=== PATIENT | female | born 1995 | race Caucasian/White ===

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

== ENCOUNTER 2017-07-01 13:27 | Emergency (ER) | payer OTHER ==
[2017-07-01 13:43] VITALS: BP 136/75; PULSE 83; RESP 18; TEMP 97.8
--- NOTE | 2017-07-01 13:54 | ED ---
General Adult HPI - General Chief complaint: Upper Respiratory Infection Stated complaint: Cough Time Seen by Provider: 07/01/17 13:30 Source: patient, RN notes reviewed Mode of arrival: ambulatory Limitations: no limitations - History of Present Illness Initial comments: 22-year-old female presents to the emergency Department chief complaint of cough. She's been sick for about a week and half. It started as sinus pressure. Now she's developed this cough. She states someone else in the home has pneumonia. She does admit to smoking. She states she has felt like fevers on and off for that. She denies any nausea vomiting. She was concerned due to the continued cough so she thought that she should be seen. Patient denies any recent chest pain, back pain, abdominal pain, nausea vomiting, numbness or tingling, dysuria or hematuria, constipation or diarrhea, headaches or visual changes, or any other current symptoms. - Related Data Home Medications Medication Instructions Recorded Confirmed Pnv,Calcium 72/Iron/Folic Acid 1 tab PO DAILY 07/26/16 11/11/16 [ Plus Tablet] Previous Rx's Medication Instructions Recorded Acetaminophen-Codeine 300-30mg 1 tab PO Q4H PRN #30 tablet 11/13/16 [Tylenol #3] Ibuprofen [Motrin] 600 mg PO Q6HR PRN #30 tab 11/13/16 Amoxicillin/Potassium Clav 1 tab PO Q12HR #20 tab 07/01/17 [Augmentin 875-125 Tablet] predniSONE 50 mg PO DAILY #5 tab 07/01/17 Allergies Allergy/AdvReac Type Severity Reaction Status Date / Time No Known Allergies Allergy Verified 07/01/17 13:40 Review of Systems ROS Statement: Those systems with pertinent positive or pertinent negative responses have been documented in the HPI. ROS Other: All systems not noted in ROS Statement are negative. Past Medical History Past Medical History: No Reported History History of Any Multi-Drug Resistant Organisms: None Reported Past Surgical History: Section, Orthopedic Surgery Past Anesthesia/Blood Transfusion Reactions: No Reported Reaction Additional Past Anesthesia/Blood Transfusion Reaction / Comment(s): no hx blood transfusion Past Psychological History: Anxiety Smoking Status: Current every day smoker Past Alcohol Use History: None Reported Past Drug Use History: None Reported - Past Family History Mother Family Medical History: No Reported History Father Family Medical History: No Reported History General Exam - General Exam Comments Initial Comments: General exam: Alert, active, comfortable in no apparent distress Head: Normocephalic Eyes: Normal reaction of pupils, equal size, normal range of extraocular motion Ears: normal external ear canals, pink tympanic membranes with normal cone of light Nose: clear with pink turbinates Throat: no erythema or exudates with normal sized tonsils Neck: no masses, no nuchal rigidity Chest: no chest wall deformity Lungs: equal air entry with no crackles or wheeze CVS: S1 and S2 normal with no audible mumurs, regular rhythm Abdomen: no hepatosplenomegaly, normal bowel sounds, no guarding or rigidity Spine: no scoliosis or deformity Skin: no rashes Neurological: No focal deficits, tone is normal in all 4 extremities Limitations: no limitations Course Vital Signs 07/01/17 13:40 Temperature 97.8 F Pulse Rate 83 Respiratory 18 Rate Blood Pressure 136/75 O2 Sat by Pulse 99 Oximetry - Reevaluation(s) Reevaluation #1: 07/01/17 14:33 We did discuss risk-benefit of medications with breast-feeding. Medical Decision Making - Medical Decision Making 22 yo female presents to the ER with cc of cough. At this time patient x-rays reviewed and negative. This and we discussed most likely a bronchitis. Due to the length of time that she has been ill we will place on antibiotic as well. We did discuss follow-up return parameters all questions. Patient is in agreement this plan all questions have been answered. This time patient will be discharged. - Radiology Data Radiology results: report reviewed, image reviewed Disposition Clinical Impression: Acute bronchitis Disposition: HOME SELF-CARE Condition: Stable Instructions: Acute Bronchitis (ED) Additional Instructions: Please use medication as discussed. Please follow up with family doctor if symptoms have not improved over the next two days. Please return to the emergency room if your symptoms increase or worsen or for any other concerns. Prescriptions: Amoxicillin/Potassium Clav [Augmentin 875-125 Tablet] 1 tab PO Q12HR #20 tab predniSONE 50 mg PO DAILY #5 tab Referrals: Wolf Torres MD [REFERRING] - 1-2 days Time of Disposition: 14:33
--- NOTE | 2017-07-01 14:24 | XR ---
EXAMINATION TYPE: XR chest 2V DATE OF EXAM: 07/01/2017 COMPARISON: NONE HISTORY: Cough and congestion TECHNIQUE: Frontal and lateral views of the chest are obtained. FINDINGS: There is no focal air space opacity, pleural effusion, or pneumothorax seen. The cardiac silhouette size is within normal limits. There is bronchial wall thickening. There may be a spinal cu rvature. The osseous structures are intact. IMPRESSION: Correlate for bronchitis, reactive airways disease, follow-up as indicated.
== END 2017-07-01 14:49 | disposition home or self-care (01) ==
LOC: EC 13:27
DX: J20.9 Acute bronchitis, unspecified (principal); F17.200 Nicotine dependence, unspecified, uncomplicated; Z79.899 Other long term (current) drug therapy
CPT/HCPCS: 71046; 99283

== ENCOUNTER 2018-01-01 09:37 | Emergency (ER) | payer OTHER ==
[2018-01-01 09:48] VITALS: BP 107/63; PULSE 90; RESP 20; TEMP 98.5
[2018-01-01] MEDS ORDERED: IBUPROFEN 600 MG TAB PO STA (10:04)
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
--- NOTE | 2018-01-01 10:16 | XR ---
EXAMINATION TYPE: XR knee complete LT , 3 VIEWS DATE OF EXAM ORDERED: 01/01/2018 HISTORY: Pain. COMPARISON: None. FINDINGS: No fracture or dislocation is seen. The study is such that I cannot exclude a joint effusi on. IMPRESSION: NO ACUTE OSSEOUS LESION.
== END 2018-01-01 10:43 | disposition home or self-care (01) ==
LOC: EC 09:37
DX: S83.92XA Sprain of unspecified site of left knee, initial encounter (principal); F17.200 Nicotine dependence, unspecified, uncomplicated; X50.1XXA Overexertion from prolonged static or awkward postures, initial encounter; Y93.44 Activity, trampolining; Y92.009 Unspecified place in unspecified non-institutional (private) residence as the place of occurrence of the external cause
CPT/HCPCS: 73562; 99283; L1830

== ENCOUNTER 2018-05-04 21:29 | Emergency (ER) | payer OTHER ==
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
[2018-05-05 00:35] VITALS: BP 118/83; PULSE 84; RESP 19; TEMP 98.6
== END 2018-05-05 00:33 | disposition home or self-care (01) ==
LOC: EC 21:29
DX: T76.21XA Adult sexual abuse, suspected, initial encounter (principal); R10.2 Pelvic and perineal pain; F17.200 Nicotine dependence, unspecified, uncomplicated
CPT/HCPCS: 99284

== ENCOUNTER 2019-05-08 03:11 | Emergency (ER) | payer OTHER ==
--- NOTE | 2019-05-08 03:22 | ED ---
Chest Pain HPI - General Chief Complaint: Chest Pain Stated Complaint: chest pain Time Seen by Provider: 05/08/19 03:12 Source: patient, EMS Mode of arrival: EMS Limitations: no limitations - History of Present Illness MD Complaint: chest pain Onset/Timin -: hour(s) Onset: other (While smoking) Pain Location: substernal Pain Radiation: none Severity: moderate Quality: other (Burning) Consistency: now resolved Improves With: nothing Worsens With: palpation Treatments Prior to Arrival: none - Related Data Home Medications Medication Instructions Recorded Confirmed No Known Home Medications 05/04/18 05/04/18 Allergies Allergy/AdvReac Type Severity Reaction Status Date / Time No Known Allergies Allergy Verified 05/08/19 03:15 Review of Systems ROS Statement: Those systems with pertinent positive or pertinent negative responses have been documented in the HPI. ROS Other: All systems not noted in ROS Statement are negative. Constitutional: Denies: fever, chills Respiratory: Denies: cough, dyspnea Cardiovascular: Reports: chest pain. Denies: palpitations, syncope Gastrointestinal: Denies: abdominal pain, nausea, vomiting Genitourinary: Denies: dysuria Musculoskeletal: Denies: back pain Skin: Denies: rash Neurological: Denies: headache EKG Findings - EKG Results: EKG: interpreted by LUCAS WEBSTER, sinus rhythm (Rate 78 bpm), normal axis, normal QRS, normal ST/T - TX, Pacemaker, Normal: Normal tracing: normal tracing Past Medical History Past Medical History: No Reported History History of Any Multi-Drug Resistant Organisms: None Reported Past Surgical History: Section, Orthopedic Surgery Past Anesthesia/Blood Transfusion Reactions: No Reported Reaction Additional Past Anesthesia/Blood Transfusion Reaction / Comment(s): no hx blood transfusion Past Psychological History: Anxiety Smoking Status: Current every day smoker Past Alcohol Use History: None Reported Past Drug Use History: Marijuana - Past Family History Mother Family Medical History: No Reported History Father Family Medical History: No Reported History General Exam Limitations: no limitations General appearance: alert, in no apparent distress Head exam: Present: atraumatic, normocephalic Respiratory exam: Present: normal lung sounds bilaterally, chest wall tenderness. Absent: respiratory distress, wheezes, rales, rhonchi, stridor, accessory muscle use, decreased breath sounds, prolonged expiratory Cardiovascular Exam: Present: regular rate, normal rhythm, normal heart sounds. Absent: systolic murmur, diastolic murmur, rubs, gallop GI/Abdominal exam: Present: soft. Absent: distended, tenderness, guarding, rebound, rigid, mass Extremities exam: Present: normal inspection, normal capillary refill. Absent: pedal edema, calf tenderness Back exam: Present: normal inspection. Absent: CVA tenderness (R), CVA tenderness (L) Neurological exam: Present: alert Skin exam: Present: warm, dry, intact, normal color. Absent: rash Course Vital Signs 05/08/19 03:12 Temperature 99.4 F Pulse Rate 75 Respiratory 16 Rate Blood Pressure 110/60 O2 Sat by Pulse 99 Oximetry Disposition Clinical Impression: Chest pain Disposition: HOME SELF-CARE Condition: Good Instructions (If sedation given, give patient instructions): Chest Pain (ED) Is patient prescribed a controlled substance at d/c from ED?: No Referrals: None,Stated [Primary Care Provider] - 1-2 days
--- NOTE | 2019-05-08 03:49 | XR ---
EXAMINATION TYPE: XR chest 2V DATE OF EXAM: 05/08/2019 COMPARISON: 07/01/2017 HISTORY: Cough. Chest pain TECHNIQUE: FINDINGS: Heart and mediastinum are normal. Lungs are clear. Diaphragm is normal. Bony thorax appears normal. IMPRESSION: Normal chest. No change.
[2019-05-08 05:07] LABS: Basophils % (A) 0 %; Eosinophils % (A) 0 %; HCT 36.9 % (34.0-46.0); HGB 12.1 gm/dL (11.4-16.0); Lymphocytes # (A) 1.2 k/uL (1.0-4.8); Lymphocytes % (A) 10 %; MCH 29.4 pg (25.0-35.0); MCHC 32.7 g/dL (31.0-37.0); MCV 90.1 fL (80.0-100.0); Monocytes # (A) 0.4 k/uL (0-1.0); Monocytes % (A) 3 %; Neutrophils # (A) 10.9 k/uL (1.3-7.7); Neutrophils % (A) 86 %; Platelet Count 337 k/uL (150-450); RDW 12.7 % (11.5-15.5); WBC 12.6 k/uL (3.8-10.6)
[2019-05-08 05:16] LABS: ALT 12 U/L (4-34); AST 18 U/L (14-36); African American GFR (CKD) >90 (>60 ml/min/1.73 sqM); Albumin 3.9 g/dL (3.5-5.0); Alkaline Phosphatase 68 U/L (38-126); Amylase 49 U/L (30-110); Anion Gap 7 mmol/L; Blood Urea Nitrogen 9 mg/dL (7-17); Calcium 9.1 mg/dL (8.4-10.2); Carbon Dioxide 22 mmol/L (22-30); Chloride 109 mmol/L (98-107); Glucose 105 mg/dL (74-99); Non-African American GFR(CKD) >90 (>60 ml/min/1.73 sqM); Potassium 4.4 mmol/L (3.5-5.1); Sodium 138 mmol/L (137-145); Total Bilirubin 0.4 mg/dL (0.2-1.3); Total Protein 6.7 g/dL (6.3-8.2)
[2019-05-08 05:51] VITALS: BP 113/49; PULSE 77; RESP 18; TEMP 97.9
== END 2019-05-08 05:50 | disposition home or self-care (01) ==
LOC: EC 03:11
DX: R07.89 Other chest pain (principal); F17.200 Nicotine dependence, unspecified, uncomplicated
CPT/HCPCS: 36415; 71046; 80053; 82150; 83690; 85025; 93005; 99285

== ENCOUNTER 2019-09-07 04:24 | Emergency (ER) | payer OTHER ==
[2019-09-07 04:33] VITALS: TEMP 99.7
[2019-09-07] MEDS ORDERED: LORazepam 2 MG/ML INJ IM STA (04:36)
[2019-09-07] MEDS ORDERED: ONDANSETRON ODT 4 MG TAB PO STA (04:36)
--- NOTE | 2019-09-07 04:37 | ED ---
Anxiety HPI - General Chief Complaint: Anxiety Stated Complaint: Anxiety Time Seen by Provider: 09/07/19 04:26 Source: patient, EMS, RN notes reviewed, old records reviewed Mode of arrival: EMS - History of Present Illness MD Complaint: anxiety, heart racing, shortness of breath -: hour(s) Symptoms: dyspnea, palpitations, extremity numbness/tingling, perioral numbness/tingling Place: home Previous History of Same: Yes Severity: moderate Quality: improving Provoking factors: emotional stress Improves With: medication (xanax) Associated symptoms: palpitations, weakness - Related Data Home Medications: Home Medications Medication Instructions Recorded Confirmed No Known Home Medications 05/04/18 05/04/18 Allergies/Adverse Reactions: Allergies Allergy/AdvReac Type Severity Reaction Status Date / Time No Known Allergies Allergy Verified 05/08/19 03:15 Review of Systems ROS Statement: Those systems with pertinent positive or pertinent negative responses have been documented in the HPI. ROS Other: All systems not noted in ROS Statement are negative. Past Medical History Past Medical History: No Reported History Additional Past Medical History / Comment(s): anxiety History of Any Multi-Drug Resistant Organisms: None Reported Past Surgical History: Section, Orthopedic Surgery Past Anesthesia/Blood Transfusion Reactions: No Reported Reaction Additional Past Anesthesia/Blood Transfusion Reaction / Comment(s): no hx blood transfusion Past Psychological History: Anxiety Smoking Status: Current every day smoker Past Alcohol Use History: None Reported Past Drug Use History: Marijuana - Past Family History Mother Family Medical History: No Reported History Father Family Medical History: No Reported History General Exam General appearance: alert, in no apparent distress, anxious Head exam: Present: atraumatic, normocephalic, normal inspection Eye exam: Present: normal appearance, PERRL, EOMI. Absent: scleral icterus, conjunctival injection, periorbital swelling ENT exam: Present: normal exam, mucous membranes moist Neck exam: Present: normal inspection. Absent: tenderness, meningismus, lymphadenopathy Respiratory exam: Present: normal lung sounds bilaterally. Absent: respiratory distress, wheezes, rales, rhonchi, stridor Cardiovascular Exam: Present: normal rhythm, tachycardia, normal heart sounds. Absent: systolic murmur, diastolic murmur, rubs, gallop, clicks GI/Abdominal exam: Present: soft, normal bowel sounds. Absent: distended, tenderness, guarding, rebound, rigid Extremities exam: Present: normal inspection, full ROM, normal capillary refill. Absent: tenderness, pedal edema, joint swelling, calf tenderness Back exam: Present: normal inspection Neurological exam: Present: alert, oriented X3, CN II-XII intact Psychiatric exam: Present: normal affect, normal mood Skin exam: Present: warm, dry, intact, normal color. Absent: rash Course Vital Signs 09/07/19 09/07/19 09/07/19 04:26 04:27 04:40 Temperature 99.7 F H Pulse Rate 109 H Respiratory 18 Rate Blood Pressure 115/66 115/66 103/71 O2 Sat by Pulse 96 96 Oximetry 09/07/19 05:00 Temperature Pulse Rate Respiratory Rate Blood Pressure 112/49 O2 Sat by Pulse 96 Oximetry Medical Decision Making - Lab Data Lab Results 09/07/19 09/07/19 Range/Units 04:35 04:35 Urine Color Colorless Urine Appearance Clear (Clear) Urine pH 6.5 (5.0-8.0) Ur Specific [place] 1.001 (1.001-1.035) Urine Protein Negative (Negative) Urine Glucose (UA) Negative (Negative) Urine Ketones Negative (Negative) Urine Blood Negative (Negative) Urine Nitrite Negative (Negative) Urine Bilirubin Negative (Negative) Urine Urobilinogen <2.0 (<2.0) mg/dL Ur Leukocyte Esterase Negative (Negative) Urine HCG, Qual Not Detected (Not Detectd) Disposition Clinical Impression: Acute anxiety, Panic attack Disposition: HOME SELF-CARE Condition: Good Instructions (If sedation given, give patient instructions): Generalized Anxiety Disorder (ED) Is patient prescribed a controlled substance at d/c from ED?: No Referrals: Nonstaff,Physician [Primary Care Provider] - 1-2 days
[2019-09-07 05:08] LABS: Appearance,Urine Clear (Clear); Bilirubin,Urine Negative (Negative); Blood,Urine Negative (Negative); Color,Urine Colorless; Glucose,Urine (UA) Negative (Negative); Ketones,Urine Negative (Negative); Leukocyte Esterase,Urine Negative (Negative); Nitrite,Urine Negative (Negative); PH, Urine 6.5 (5.0-8.0); Protein,Urine Negative (Negative); Specific Gravity,Urine 1.001 (1.001-1.035); Urobilinogen,Urine <2.0 mg/dL (<2.0)
--- NOTE | 2019-09-07 05:49 | XR ---
EXAMINATION TYPE: XR chest 2V DATE OF EXAM: 09/07/2019 COMPARISON: 07/01/2017 HISTORY: Cough TECHNIQUE: FINDINGS: Heart and mediastinum are normal. Lungs are clear. Diaphragm is normal. Bony thorax appears normal. IMPRESSION: Normal chest. No change.
[2019-09-07 06:00] VITALS: BP 96/50; PULSE 92; RESP 16
== END 2019-09-07 06:29 | disposition home or self-care (01) ==
LOC: EC 04:24
DX: F41.0 Panic disorder [episodic paroxysmal anxiety] (principal); F17.200 Nicotine dependence, unspecified, uncomplicated
CPT/HCPCS: 81003; 81025; 71046; 99284; 96372; J2060

== ENCOUNTER 2019-11-19 05:17 | Emergency (ER) | payer OTHER ==
[2019-11-19] MEDS ORDERED: SODIUM CHLORIDE 0.9% 500 ML 500 ML IV ONE (06:15)
[2019-11-19] MEDS ORDERED: SODIUM CHLORIDE 0.9% 1,000 ML IV SCH (06:15)
[2019-11-19] MEDS ORDERED: IBUPROFEN 800 MG TAB PO STA (06:15)
[2019-11-19 06:43] LABS: Appearance,Urine Cloudy (Clear); Bilirubin,Urine Negative (Negative); Blood,Urine Negative (Negative); Calcium Oxalate Crystals,Urine Occasional /hpf; Color,Urine Yellow; Glucose,Urine (UA) Negative (Negative); Ketones,Urine Negative (Negative); Leukocyte Esterase,Urine Negative (Negative); Mucus,Urine Occasional /hpf; Nitrite,Urine Negative (Negative); PH, Urine 6.5 (5.0-8.0); Protein,Urine Trace (Negative); RBC,Urine 1 /hpf (0-5); Urobilinogen,Urine <2.0 mg/dL (<2.0); WBC,Urine <1 /hpf (0-5)
[2019-11-19 06:58] LABS: Basophils % (A) 0 %; Eosinophils # (A) 0.1 k/uL (0-0.7); Eosinophils % (A) 2 %; HCT 37.2 % (34.0-46.0); HGB 12.6 gm/dL (11.4-16.0); Lymphocytes # (A) 0.6 k/uL (1.0-4.8); Lymphocytes % (A) 12 %; MCH 31.8 pg (25.0-35.0); MCHC 33.8 g/dL (31.0-37.0); MCV 93.9 fL (80.0-100.0); Monocytes # (A) 0.4 k/uL (0-1.0); Monocytes % (A) 8 %; Neutrophils # (A) 3.6 k/uL (1.3-7.7); Neutrophils % (A) 77 %; Platelet Count 246 k/uL (150-450); RBC 3.96 m/uL (3.80-5.40); RDW 13.1 % (11.5-15.5); WBC 4.6 k/uL (3.8-10.6)
[2019-11-19 07:06] LABS: ALT 19 U/L (4-34); AST 22 U/L (14-36); African American GFR (CKD) >90 (>60 ml/min/1.73 sqM); Albumin 4.1 g/dL (3.5-5.0); Alkaline Phosphatase 56 U/L (38-126); Anion Gap 6 mmol/L; Blood Urea Nitrogen 12 mg/dL (7-17); Calcium 8.8 mg/dL (8.4-10.2); Carbon Dioxide 24 mmol/L (22-30); Chloride 109 mmol/L (98-107); Glucose 90 mg/dL (74-99); Non-African American GFR(CKD) >90 (>60 ml/min/1.73 sqM); Potassium 4.2 mmol/L (3.5-5.1); Sodium 139 mmol/L (137-145); Total Bilirubin 0.3 mg/dL (0.2-1.3); Total Protein 6.8 g/dL (6.3-8.2)
--- NOTE | 2019-11-19 07:06 | XR ---
EXAMINATION TYPE: XR chest 2V DATE OF EXAM: 11/19/2019 COMPARISON: 09/07/2019 HISTORY: Cough TECHNIQUE: FINDINGS: Heart and mediastinum are normal. Lungs are clear. Diaphragm is normal. Bony thorax appears normal. IMPRESSION: Normal chest. No change.
--- NOTE | 2019-11-19 07:10 | ED ---
Fever HPI - General Source: patient, EMS Mode of arrival: EMS Limitations: no limitations <Dayna Jim - Last Filed: 11/19/19 07:36> <Tavia Mendes - Last Filed: 11/20/19 14:33> - General Chief Complaint: Fever Stated Complaint: Fever, Body aches Time Seen by Provider: 11/19/19 06:00 - History of Present Illness Initial Comments: 24-year-old male presenting today for chief complaint of fever body aches. Pat ient states that she has had fever bodyaches a sore throat and slight cough for the past day. Patient states that it began around 8 PM last night. She states that she took Tylenol bed as well as 1 hour prior to arrival. Patient denies any vomiting flank pain back pain dysuria or urgency frequency she denies any chest pain or shortness of breath. Patient denies any difficulty swallowing. Patient denies any abdominal pain. Denies . She denies additional complaints. Upon arrival patient febrile but appears well nontoxic, no distress. (Dayna Jim) - Related Data Previous Rx's Medication Instructions Recorded Acetaminophen Tab [Tylenol] 650 mg PO Q4H PRN 7 Days #42 tab 11/19/19 Ibuprofen 600 mg PO Q8H PRN 7 Days #21 tab 11/19/19 predniSONE 20 mg PO DAILY 4 Days #8 tab 11/19/19 Allergies Allergy/AdvReac Type Severity Reaction Status Date / Time No Known Allergies Allergy Verified 05/08/19 03:15 Review of Systems ROS Other: All systems not noted in ROS Statement are negative. <Dayna Jim - Last Filed: 11/19/19 07:36> ROS Other: All systems not noted in ROS Statement are negative. <Tavia Mendes - Last Filed: 11/20/19 14:33> ROS Statement: Those systems with pertinent positive or pertinent negative responses have been documented in the HPI. Past Medical History Past Medical History: No Reported History Additional Past Medical History / Comment(s): anxiety History of Any Multi-Drug Resistant Organisms: None Reported Past Surgical History: Section, Orthopedic Surgery Past Anesthesia/Blood Transfusion Reactions: No Reported Reaction Additional Past Anesthesia/Blood Transfusion Reaction / Comment(s): no hx blood transfusion Past Psychological History: Anxiety Smoking Status: Current every day smoker Past Alcohol Use History: Occasional Past Drug Use History: Marijuana - Past Family History Mother Family Medical History: No Reported History Father Family Medical History: No Reported History <Dayna Jim - Last Filed: 11/19/19 07:36> General Exam Limitations: no limitations <Dayna Jim - Last Filed: 11/19/19 07:36> - General Exam Comments Initial Comments: General: The patient is awake and alert, in no distress Eye: +3 mm pupils are equal, round and reactive to light, extra-ocular movem ents are intact. No nystagmus. There is normal conjunctiva bilaterally. No signs of icterus. No photophobia Ears, nose, mouth and throat: There are moist mucous membranes and no oral lesions. Oropharynx was mildly erythematous, there is no tonsillar enlargement exudates or lesions. Uvula midline. Tympanic membranes are not erythematous or is no effusions bulging or retraction. No tenderness to palpation of the mastoid. No anterior cervical lymphadenopathy. Rhinorrhea, clear and bilateral nares. No tripoding, no drooling. Neck: The neck is supple, there is no tenderness or JVD. No nuchal rigidity Cardiovascular: There is a regular rate and rhythm. No murmur, rub or gallop is appreciated. Respiratory: Lungs are clear to auscultation, respirations are non-labored, breath sounds are equal. No wheezes, stridor, rales, or rhonchi. No retractions or abdominal breathing. Musculoskeletal: Normal ROM, no tenderness. Strength 5/5. Sensation intact. Ra dial pulses equal bilaterally 2+. Neurological: A&O x 3. CN II-XII intact grossly, There are no obvious motor or sensory deficits. Coordination appears grossly intact. Speech appears normal, no muffling. Skin: Skin is warm and dry and no rashes or lesions are noted. No extremity edema Psychiatric: Cooperative (Dayna Jim) Course Vital Signs 11/19/19 11/19/19 11/19/19 05:22 07:25 07:30 Temperature 101.8 F H 99.5 F Pulse Rate 100 88 Respiratory 17 14 Rate Blood Pressure 95/51 99/52 O2 Sat by Pulse 96 97 Oximetry Medical Decision Making - Lab Data Result diagrams: 11/19/19 06:43 07/27/20 06:43 <Dayna Jim - Last Filed: 11/19/19 07:36> - Lab Data Result diagrams: 11/19/19 06:43 11/19/19 06:43 <Tavia Mendes - Last Filed: 11/20/19 14:33> - Medical Decision Making 24yo female presnting for fever. Febrile on arrival. Endorses URI symptoms. Present on exam. Labs stable. HR improved with fever control, fluids. Patient has no leukocytosis, she does not appear toxic. Patient CXR clear. Lungs clear to auscultation. Patient will be discharged with symptomatic treatment/steroids. Patient is agreeable to care plan and discharge. discussed case wtih Dr. Mendes who is agreeable to patient discharge/care plan. I discussed importance of f/u, return for worsening symptoms and symptomatic treatment with patient she verbalized understanding and was discharged appearing well. (Dayna Jim) I was available for consultation in the emergency department. The history and physical exam were done by the midlevel provider. I was consulted for this patients care. I reviewed the case with the midlevel provider and based on their presentation of the patient, I agree with the assessment, medical decision making and plan of care as documented. Chart was dictated using [employer] dictation software. Attempts were made to correct any dictation errors however some typographical errors may persist. Patient was seen during a national state of emergency due to the Covid-19 pandemic. (Tavia Mendes) - Lab Data Lab Results 11/19/19 11/19/19 11/19/19 Range/Units 06:21 06:30 06:43 WBC (3.8-10.6) k/uL RBC (3.80-5.40) m/uL Hgb (11.4-16.0) gm/dL Hct (34.0-46.0) % MCV (80.0-100.0) fL MCH (25.0-35.0) pg MCHC (31.0-37.0) g/dL RDW (11.5-15.5) % Plt Count (150-450) k/uL Neutrophils % % Lymphocytes % % Monocytes % % Eosinophils % % Basophils % % Neutrophils # (1.3-7.7) k/uL Lymphocytes # (1.0-4.8) k/uL Monocytes # (0-1.0) k/uL Eosinophils # (0-0.7) k/uL Basophils # (0-0.2) k/uL Sodium (137-145) mmol/L Potassium (3.5-5.1) mmol/L Chloride (98-107) mmol/L Carbon Dioxide (22-30) mmol/L Anion Gap mmol/L BUN (7-17) mg/dL Creatinine (0.52-1.04) mg/dL Est GFR (CKD-EPI)AfAm (>60 ml/min/1.73 sqM) Est GFR (CKD-EPI)NonAf (>60 ml/min/1.73 sqM) Glucose (74-99) mg/dL Calcium (8.4-10.2) mg/dL Total Bilirubin (0.2-1.3) mg/dL AST (14-36) U/L ALT (4-34) U/L Alkaline Phosphatase (38-126) U/L Total Protein (6.3-8.2) g/dL Albumin (3.5-5.0) g/dL Urine Color Yellow Urine Appearance Cloudy H (Clear) Urine pH 6.5 (5.0-8.0) Ur Specific [place] 1.030 (1.001-1.035) Urine Protein Trace H (Negative) Urine Glucose (UA) Negative (Negative) Urine Ketones Negative (Negative) Urine Blood Negative (Negative) Urine Nitrite Negative (Negative) Urine Bilirubin Negative (Negative) Urine Urobilinogen <2.0 (<2.0) mg/dL Ur Leukocyte Esterase Negative (Negative) Urine RBC 1 (0-5) /hpf Urine WBC <1 (0-5) /hpf Calcium Oxalate Crystal Occasional H (None) /hpf Urine Mucus Occasional H (None) /hpf Urine HCG, Qual Not Detected (Not Detectd) Coronavirus (PCR) Not Detected (Not Detected) Group A Strep Rapid (Negative) 11/19/19 11/19/19 11/19/19 Range/Units 06:43 06:43 07:22 WBC 4.6 (3.8-10.6) k/uL RBC 3.96 (3.80-5.40) m/uL Hgb 12.6 (11.4-16.0) gm/dL Hct 37.2 (34.0-46.0) % MCV 93.9 (80.0-100.0) fL MCH 31.8 (25.0-35.0) pg MCHC 33.8 (31.0-37.0) g/dL RDW 13.1 (11.5-15.5) % Plt Count 246 (150-450) k/uL Neutrophils % 77 % Lymphocytes % 12 % Monocytes % 8 % Eosinophils % 2 % Basophils % 0 % Neutrophils # 3.6 (1.3-7.7) k/uL Lymphocytes # 0.6 L (1.0-4.8) k/uL Monocytes # 0.4 (0-1.0) k/uL Eosinophils # 0.1 (0-0.7) k/uL Basophils # 0.0 (0-0.2) k/uL Sodium 139 (137-145) mmol/L Potassium 4.2 (3.5-5.1) mmol/L Chloride 109 H (98-107) mmol/L Carbon Dioxide 24 (22-30) mmol/L Anion Gap 6 mmol/L BUN 12 (7-17) mg/dL Creatinine 0.73 (0.52-1.04) mg/dL Est GFR (CKD-EPI)AfAm >90 (>60 ml/min/1.73 sqM) Est GFR (CKD-EPI)NonAf >90 (>60 ml/min/1.73 sqM) Glucose 90 (74-99) mg/dL Calcium 8.8 (8.4-10.2) mg/dL Total Bilirubin 0.3 (0.2-1.3) mg/dL AST 22 (14-36) U/L ALT 19 (4-34) U/L Alkaline Phosphatase 56 (38-126) U/L Total Protein 6.8 (6.3-8.2) g/dL Albumin 4.1 (3.5-5.0) g/dL Urine Color Urine Appearance (Clear) Urine pH (5.0-8.0) Ur Specific [place] (1.001-1.035) Urine Protein (Negative) Urine Glucose (UA) (Negative) Urine Ketones (Negative) Urine Blood (Negative) Urine Nitrite (Negative) Urine Bilirubin (Negative) Urine Urobilinogen (<2.0) mg/dL Ur Leukocyte Esterase (Negative) Urine RBC (0-5) /hpf Urine WBC (0-5) /hpf Calcium Oxalate Crystal (None) /hpf Urine Mucus (None) /hpf Urine HCG, Qual (Not Detectd) Coronavirus (PCR) (Not Detected) Group A Strep Rapid Negative (Negative) Disposition Is patient prescribed a controlled substance at d/c from ED?: No Time of Disposition: 07:09 <Dayna Jim Hussein - Last Filed: 11/19/19 07:36> <Rossy Mendesah Santi - Last Filed: 11/20/19 14:33> Clinical Impression: Fever, Sore throat, Body aches Disposition: HOME SELF-CARE Condition: Good Instructions (If sedation given, give patient instructions): Fever in Adults (ED) Additional Instructions: Please use medication as discussed. Please follow-up with family doctor in the next 2 days. Can take maximum of 3.5 tablets of tylenol (prescribed kind) or if using over the counter you can take up to 2g (4, 500mg tablets daily) Please return to emergency room if the symptoms increase or worsen or for any other concerns. Prescriptions: Ibuprofen 600 mg PO Q8H PRN 7 Days #21 tab PRN Reason: Fever predniSONE 20 mg PO DAILY 4 Days #8 tab Acetaminophen Tab [Tylenol] 650 mg PO Q4H PRN 7 Days #42 tab PRN Reason: Fever Referrals: Nonstaff,Physician [Primary Care Provider] - 1-2 days
[2019-11-19 07:26] VITALS: PULSE 88; RESP 14; TEMP 99.5
[2019-11-19 07:31] VITALS: BP 99/52
== END 2019-11-19 07:42 | disposition home or self-care (01) ==
LOC: EC 05:17
DX: J02.9 Acute pharyngitis, unspecified (principal); F17.200 Nicotine dependence, unspecified, uncomplicated
CPT/HCPCS: 99284; 36415; 80053; 85025; 81001; 81025; 87081; 87430; 71046; 96360; U0003

== ENCOUNTER 2020-06-16 20:45 | Emergency (ER) | payer OTHER ==
[2020-06-16 20:52] VITALS: BP 144/76; PULSE 90; RESP 18; TEMP 98.7
[2020-06-16] MEDS ORDERED: ONDANSETRON 4 MG/2 ML VIAL IVP STA (21:04)
[2020-06-16] MEDS ORDERED: MORPHINE SULFATE 4 MG/ML SYRINGE IV STA (21:04)
[2020-06-16] MEDS ORDERED: SODIUM CHLORIDE 0.9% 1,000 ML IV STA (21:04)
[2020-06-16 21:24] LABS: Basophils % (A) 0 %; Eosinophils # (A) 0.1 k/uL (0-0.7); Eosinophils % (A) 2 %; HCT 38.6 % (34.0-46.0); Lymphocytes # (A) 1.9 k/uL (1.0-4.8); Lymphocytes % (A) 26 %; MCH 30.4 pg (25.0-35.0); MCHC 33.6 g/dL (31.0-37.0); MCV 90.6 fL (80.0-100.0); Mean Platelet Volume 6.6; Monocytes # (A) 0.2 k/uL (0-1.0); Monocytes % (A) 3 %; Neutrophils # (A) 4.8 k/uL (1.3-7.7); Neutrophils % (A) 67 %; Platelet Count 319 k/uL (150-450); RBC 4.26 m/uL (3.80-5.40); RDW 12.6 % (11.5-15.5); WBC 7.1 k/uL (3.8-10.6)
[2020-06-16 21:33] LABS: ALT 26 U/L (4-34); AST 23 U/L (14-36); African American GFR (CKD) >90 (>60 ml/min/1.73 sqM); Albumin 4.2 g/dL (3.5-5.0); Alkaline Phosphatase 62 U/L (38-126); Amylase 58 U/L (30-110); Anion Gap 11 mmol/L; Blood Urea Nitrogen 10 mg/dL (7-17); Calcium 9.3 mg/dL (8.4-10.2); Carbon Dioxide 26 mmol/L (22-30); Chloride 102 mmol/L (98-107); Glucose 115 mg/dL (74-99); Lipase 87 U/L (23-300); Non-African American GFR(CKD) >90 (>60 ml/min/1.73 sqM); Potassium 3.8 mmol/L (3.5-5.1); Sodium 139 mmol/L (137-145); Total Bilirubin 0.3 mg/dL (0.2-1.3); Total Protein 7.3 g/dL (6.3-8.2)
--- NOTE | 2020-06-16 21:39 | ED ---
Abdominal Pain HPI - General Chief Complaint: Abdominal Pain Stated Complaint: Right foot pain,ABD pain Time Seen by Provider: 06/16/20 20:58 Source: patient, RN notes reviewed Mode of arrival: wheelchair Limitations: no limitations - History of Present Illness Initial Comments: Patient is a 22 oh female presents to emergency department complaining of lower abdominal pain. She noted pain started this morning. She'll the pain is about 8 out of 10 with no relief and unrelenting. She she stated that she was not nauseous or vomited. She denied any previous surgical history is or ALLERGIES. Patient was in no apparent distress or pain while sitting in bed during the exam. He did note that she has not had a bowel movement today and that she usually has whenever so they. She did note that when she got up at the Hospital she rolled her foot and it became mildly painful. She denied any chest pain first breath headache nausea vomiting diarrhea constipation fever fatigue chills - Related Data Previous Rx's Medication Instructions Recorded Acetaminophen Tab [Tylenol] 650 mg PO Q4H PRN 7 Days #42 tab 11/19/19 Ibuprofen 600 mg PO Q8H PRN 7 Days #21 tab 11/19/19 predniSONE 20 mg PO DAILY 4 Days #8 tab 11/19/19 Allergies Allergy/AdvReac Type Severity Reaction Status Date / Time No Known Allergies Allergy Verified 05/08/19 03:15 Review of Systems ROS Statement: Those systems with pertinent positive or pertinent negative responses have been documented in the HPI. ROS Other: All systems not noted in ROS Statement are negative. Past Medical History Past Medical History: No Reported History Additional Past Medical History / Comment(s): anxiety History of Any Multi-Drug Resistant Organisms: None Reported Past Surgical History: Section, Orthopedic Surgery Past Anesthesia/Blood Transfusion Reactions: No Reported Reaction Additional Past Anesthesia/Blood Transfusion Reaction / Comment(s): no hx blood transfusion Past Psychological History: Anxiety Smoking Status: Current every day smoker Past Alcohol Use History: Occasional Past Drug Use History: Marijuana - Past Family History Mother Family Medical History: No Reported History Father Family Medical History: No Reported History General Exam Limitations: no limitations General appearance: alert, in no apparent distress, obese Head exam: Present: atraumatic, normocephalic, normal inspection Eye exam: Present: normal appearance, PERRL, EOMI. Absent: scleral icterus, conjunctival injection, periorbital swelling ENT exam: Present: mucous membranes moist Neck exam: Present: normal inspection. Absent: tenderness, meningismus, lymphadenopathy Respiratory exam: Present: normal lung sounds bilaterally. Absent: respiratory distress, wheezes, rales, rhonchi, stridor Cardiovascular Exam: Present: regular rate, normal rhythm, normal heart sounds. Absent: systolic murmur, diastolic murmur, rubs, gallop, clicks GI/Abdominal exam: Present: soft, tenderness (Generalized lower abdominal), hypoactive bowel sounds. Absent: distended, guarding, rebound, rigid Extremities exam: Present: normal inspection, full ROM, normal capillary refill. Absent: tenderness, pedal edema, joint swelling, calf tenderness Neurological exam: Present: alert, oriented X3, CN II-XII intact Psychiatric exam: Present: normal affect, normal mood Skin exam: Present: warm, dry, intact, normal color. Absent: rash Course Vital Signs 06/16/20 20:50 Temperature 98.7 F Pulse Rate 90 Respiratory 18 Rate Blood Pressure 144/76 O2 Sat by Pulse 99 Oximetry Medical Decision Making - Medical Decision Making 25-year-old female complaining of lower abdominal pain. Labwork, 4 morphine, 4 mg of Zofran, 1 L normal saline bolus, CT of the abdomen and pelvis ordered. Labs unremarkable. CT of abdomen and pelvis: Negative for any acute process. Case discussed with Dr. Landaverde, etc. the patient to discharge home. - Lab Data Result diagrams: 06/16/20 21:17 06/16/20 21:17 Lab Results 06/16/20 06/16/20 06/16/20 Range/Units 21:17 21:17 21:25 WBC 7.1 (3.8-10.6) k/uL RBC 4.26 (3.80-5.40) m/uL Hgb 13.0 (11.4-16.0) gm/dL Hct 38.6 (34.0-46.0) % MCV 90.6 (80.0-100.0) fL MCH 30.4 (25.0-35.0) pg MCHC 33.6 (31.0-37.0) g/dL RDW 12.6 (11.5-15.5) % Plt Count 319 (150-450) k/uL MPV 6.6 Neutrophils % 67 % Lymphocytes % 26 % Monocytes % 3 % Eosinophils % 2 % Basophils % 0 % Neutrophils # 4.8 (1.3-7.7) k/uL Lymphocytes # 1.9 (1.0-4.8) k/uL Monocytes # 0.2 (0-1.0) k/uL Eosinophils # 0.1 (0-0.7) k/uL Basophils # 0.0 (0-0.2) k/uL Sodium 139 (137-145) mmol/L Potassium 3.8 (3.5-5.1) mmol/L Chloride 102 (98-107) mmol/L Carbon Dioxide 26 (22-30) mmol/L Anion Gap 11 mmol/L BUN 10 (7-17) mg/dL Creatinine 0.74 (0.52-1.04) mg/dL Est GFR (CKD-EPI)AfAm >90 (>60 ml/min/1.73 sqM) Est GFR (CKD-EPI)NonAf >90 (>60 ml/min/1.73 sqM) Glucose 115 H (74-99) mg/dL Calcium 9.3 (8.4-10.2) mg/dL Total Bilirubin 0.3 (0.2-1.3) mg/dL AST 23 (14-36) U/L ALT 26 (4-34) U/L Alkaline Phosphatase 62 (38-126) U/L Total Protein 7.3 (6.3-8.2) g/dL Albumin 4.2 (3.5-5.0) g/dL Amylase 58 (30-110) U/L Lipase 87 (23-300) U/L Urine Color Yellow Urine Appearance Clear (Clear) Urine pH 5.5 (5.0-8.0) Ur Specific [place] 1.023 (1.001-1.035) Urine Protein Negative (Negative) Urine Glucose (UA) Negative (Negative) Urine Ketones Negative (Negative) Urine Blood Negative (Negative) Urine Nitrite Negative (Negative) Urine Bilirubin Negative (Negative) Urine Urobilinogen <2.0 (<2.0) mg/dL Ur Leukocyte Esterase Trace H (Negative) Urine WBC 3 (0-5) /hpf Ur Squamous Epith Cells 2 (0-4) /hpf Urine Mucus Occasional H (None) /hpf Urine HCG, Qual (Not Detectd) 02/22/21 Range/Units 21:25 WBC (3.8-10.6) k/uL RBC (3.80-5.40) m/uL Hgb (11.4-16.0) gm/dL Hct (34.0-46.0) % MCV (80.0-100.0) fL MCH (25.0-35.0) pg MCHC (31.0-37.0) g/dL RDW (11.5-15.5) % Plt Count (150-450) k/uL MPV Neutrophils % % Lymphocytes % % Monocytes % % Eosinophils % % Basophils % % Neutrophils # (1.3-7.7) k/uL Lymphocytes # (1.0-4.8) k/uL Monocytes # (0-1.0) k/uL Eosinophils # (0-0.7) k/uL Basophils # (0-0.2) k/uL Sodium (137-145) mmol/L Potassium (3.5-5.1) mmol/L Chloride (98-107) mmol/L Carbon Dioxide (22-30) mmol/L Anion Gap mmol/L BUN (7-17) mg/dL Creatinine (0.52-1.04) mg/dL Est GFR (CKD-EPI)AfAm (>60 ml/min/1.73 sqM) Est GFR (CKD-EPI)NonAf (>60 ml/min/1.73 sqM) Glucose (74-99) mg/dL Calcium (8.4-10.2) mg/dL Total Bilirubin (0.2-1.3) mg/dL AST (14-36) U/L ALT (4-34) U/L Alkaline Phosphatase (38-126) U/L Total Protein (6.3-8.2) g/dL Albumin (3.5-5.0) g/dL Amylase (30-110) U/L Lipase (23-300) U/L Urine Color Urine Appearance (Clear) Urine pH (5.0-8.0) Ur Specific [place] (1.001-1.035) Urine Protein (Negative) Urine Glucose (UA) (Negative) Urine Ketones (Negative) Urine Blood (Negative) Urine Nitrite (Negative) Urine Bilirubin (Negative) Urine Urobilinogen (<2.0) mg/dL Ur Leukocyte Esterase (Negative) Urine WBC (0-5) /hpf Ur Squamous Epith Cells (0-4) /hpf Urine Mucus (None) /hpf Urine HCG, Qual Not Detected (Not Detectd) - Radiology Data Radiology results: report reviewed, image reviewed Negative computed tomography scan of abdomen and pelvis. No evidence constipation normal appendix. Disposition Clinical Impression: Abdominal pain Disposition: HOME SELF-CARE Condition: Stable Instructions (If sedation given, give patient instructions): Abdominal Pain (ED) Additional Instructions: Please return to the Emergency Department if symptoms worsen or any other concerns. Follow-up with primary care 1-2 days. Take [id number] pain medication as needed for management. Increase oral intake of fluids. Is patient prescribed a controlled substance at d/c from ED?: No Referrals: None,Stated [Primary Care Provider] - 1-2 days Time of Disposition: 22:43
[2020-06-16 21:48] LABS: Appearance,Urine Clear (Clear); Bilirubin,Urine Negative (Negative); Blood,Urine Negative (Negative); Color,Urine Yellow; Glucose,Urine (UA) Negative (Negative); Ketones,Urine Negative (Negative); Leukocyte Esterase,Urine Trace (Negative); Mucus,Urine Occasional /hpf; Nitrite,Urine Negative (Negative); PH, Urine 5.5 (5.0-8.0); Protein,Urine Negative (Negative); Specific Gravity,Urine 1.023 (1.001-1.035); Squamous Epithelial Cell,Urine 2 /hpf (0-4); Urobilinogen,Urine <2.0 mg/dL (<2.0); WBC,Urine 3 /hpf (0-5)
[2020-06-16] MEDS ORDERED: MORPHINE SULFATE 2 MG/ML SYRINGE IVP STA (22:41)
--- NOTE | 2020-06-16 22:41 | CT ---
EXAMINATION TYPE: CT abdomen pelvis w con DATE OF EXAM: 06/16/2020 COMPARISON: None HISTORY: Lower abdominal pain and constipation today. CT DLP: 1540 mGycm Automated exposure control for dose reduction was used. CONTRAST: Performed with IV Contrast, patient injected with 100ml mL of Isovue 300. Images obtained from the diaphragm to the floor the pelvis with IV contrast. The lung bases are clear. There is no pleural effusion. Heart size is normal. There is no pericardial effusion. Liver spleen stomach pancreas gallbladder appear normal. Bile ducts are not dilated. There is no adrenal mass. Kidneys show satisfactory contrast opacification. There is no hydronephrosi s. There is no retroperitoneal adenopathy. Delayed images show normal renal excretion. Appendix is poste rior and appears normal. Bladder distends smoothly. There is no inguinal hernia. Uterus is anteverted. There is no pelvic mass . There is no free fluid in the pelvis. The lumbar vertebra have normal alignment. Posterior elements are intact. There is no compression fracture. Bony pelvis is intact. The hip joints are intact. There is no mesenteric edema. There is no ascites or free air. There is no sign of a bowel obstructio n. IMPRESSION: Negative CT scan abdomen and pelvis. No evidence of constipation. Normal appendix.
== END 2020-06-16 22:55 | disposition home or self-care (01) ==
LOC: EC 20:45
DX: R10.30 Lower abdominal pain, unspecified (principal); M79.671 Pain in right foot; F17.200 Nicotine dependence, unspecified, uncomplicated
CPT/HCPCS: 36415; 80053; 82150; 83690; 85025; 81001; 81025; 74177; 99284; 96374; 96375; 96376; 96361; J2270 ×2; J2405; Q9967

== ENCOUNTER 2020-07-18 22:54 | Emergency (ER) | payer OTHER ==
[2020-07-18 22:58] VITALS: RESP 18
[2020-07-18] MEDS ORDERED: ACETAMINOPHEN TAB 500 MG TAB PO STA (23:13)
--- NOTE | 2020-07-18 23:34 | XR ---
EXAMINATION TYPE: XR chest 1V portable DATE OF EXAM: 07/18/2020 COMPARISON: 11/19/2019 HISTORY: Cough TECHNIQUE: Single view FINDINGS: Heart and mediastinum are normal. Lungs are clear. Diaphragm is normal. Bony thorax appears intact. Pulmonary vascularity is normal. IMPRESSION: Normal chest. No change.
--- NOTE | 2020-07-19 00:44 | ED ---
General Adult HPI - General Chief complaint: Upper Respiratory Infection Stated complaint: Sore throat, body aches Time Seen by Provider: 07/18/20 23:04 Source: patient, RN notes reviewed Mode of arrival: ambulatory Limitations: no limitations - History of Present Illness Initial comments: 25-year-old female with a past medical history of anxiety presents to the emergency room for not feeling well. Patient reports that since yesterday she has had a cough and sore throat. States she has chills and body aches. She has not had any fevers that she is aware of. Patient did take Motrin about 4 hours prior to arrival as well as 500 mg of Tylenol. Patient states that today she vomited. Patient denies any covid exposures. Patient denies shortness of breath. Denies history of asthma. Patient has no other complaints at this time including shortness of breath, chest pain, abdominal pain, nausea or vomiting, headache, or visual changes. - Related Data Previous Rx's Medication Instructions Recorded Acetaminophen Tab [Tylenol] 650 mg PO Q4H PRN 7 Days #42 tab 11/19/19 Ibuprofen 600 mg PO Q8H PRN 7 Days #21 tab 11/19/19 predniSONE 20 mg PO DAILY 4 Days #8 tab 11/19/19 Allergies Allergy/AdvReac Type Severity Reaction Status Date / Time No Known Allergies Allergy Verified 07/18/20 22:58 Review of Systems ROS Statement: Those systems with pertinent positive or pertinent negative responses have been documented in the HPI. ROS Other: All systems not noted in ROS Statement are negative. Past Medical History Past Medical History: No Reported History Additional Past Medical History / Comment(s): anxiety History of Any Multi-Drug Resistant Organisms: None Reported Past Surgical History: Section, Orthopedic Surgery Past Anesthesia/Blood Transfusion Reactions: No Reported Reaction Additional Past Anesthesia/Blood Transfusion Reaction / Comment(s): no hx blood transfusion Past Psychological History: Anxiety Smoking Status: Vaper Past Alcohol Use History: Occasional Past Drug Use History: Marijuana - Past Family History Mother Family Medical History: No Reported History Father Family Medical History: No Reported History General Exam Limitations: no limitations General appearance: alert, in no apparent distress Head exam: Present: atraumatic, normocephalic, normal inspection Eye exam: Present: normal appearance, PERRL, EOMI. Absent: scleral icterus, conjunctival injection, periorbital swelling ENT exam: Present: normal exam, normal oropharynx (Uvula midline, no tonsillar exudates bilaterally), mucous membranes moist, TM's normal bilaterally, normal external ear exam Neck exam: Present: normal inspection, full ROM. Absent: tenderness, meningis mus, lymphadenopathy Respiratory exam: Present: normal lung sounds bilaterally. Absent: respiratory distress, wheezes, rales, rhonchi, stridor Cardiovascular Exam: Present: regular rate, normal rhythm, normal heart sounds. Absent: systolic murmur, diastolic murmur, rubs, gallop, clicks GI/Abdominal exam: Present: soft, normal bowel sounds. Absent: distended, tenderness, guarding, rebound, rigid Course Vital Signs 07/18/20 07/18/20 07/19/20 22:56 23:13 01:06 Temperature 99.4 F 100.7 F H 98.7 F Pulse Rate 86 84 Respiratory 18 18 Rate Blood Pressure 144/77 119/65 O2 Sat by Pulse 100 99 Oximetry Medical Decision Making - Medical Decision Making Vitals are stable. Patient is well-appearing. She does have a fever of 100.7. 100% on room air. No S3 distress. Chen virus was detected. Strep negative. Chest x-ray showed no acute process. I did recommend patient have antibody infusion as she does meet the criteria with BMI of 39.5. I did discuss the benefits of this medication however patient refuses. She does not for comfortable with this medication given the emergency authorization status after reviewing the information packet. At this time discussed quarantining and takin g vitamins. Discussed returning for any worsening symptoms such as SOB. - Lab Data Lab Results 07/18/20 07/18/20 Range/Units 23:24 23:24 Coronavirus (PCR) Detected A (Not Detectd) Group A Strep Rapid Negative (Negative) Disposition Clinical Impression: COVID-19 Disposition: HOME SELF-CARE Condition: Good Instructions (If sedation given, give patient instructions): Coronavirus Disease 2019 (COVID-19) Additional Instructions: Please make sure to quarantine for at least 10 -14 days. Take Motrin and Tylenol for fever. Follow-up with your doctor. If you develop worsening symptoms such as shortness of breath return to the emergency room. Is patient prescribed a controlled substance at d/c from ED?: No Referrals: Nonstaff,Physician [Primary Care Provider] - 1-2 days Time of Disposition: 00:43
[2020-07-19 01:08] VITALS: BP 119/65; PULSE 84; TEMP 98.7
== END 2020-07-19 01:08 | disposition home or self-care (01) ==
LOC: EC 22:54
DX: U07.1 COVID-19 (principal)
CPT/HCPCS: 71045; 87081; 87430; 87635; 99284

== ENCOUNTER 2020-08-15 21:12 | Emergency (ER) | payer OTHER ==
[2020-08-15 21:22] VITALS: BP 115/65; PULSE 95; RESP 20; TEMP 98.2
--- NOTE | 2020-08-15 21:43 | ED ---
Extremity Problem HPI - General Chief complaint: Extremity Problem,Nontraumatic Stated complaint: R Leg Lump Time Seen by Provider: 08/15/20 21:29 Source: patient, RN notes reviewed, old records reviewed Mode of arrival: ambulatory Limitations: no limitations - History of Present Illness Initial comments: Is a 25-year-old female DF she presents today for evaluation regards to bug bite of right lower extremity. Patient's bug bite to her right calf with increasing swelling. Otherwise no complaints no other she is no injuries. No fevers. Patient has no significant medical history takes no medications MD Complaint: extremity pain, extremity swelling, other (Bug bite right calf) -: days(s) (2) Location: right, lower extremity History of Same: No Radiation: none Severity scale (1-10): 5 Quality: stabbing Consistency: constant Improves with: nothing Worsens with: nothing Associated Symptoms: denies other symptoms - Related Data Previous Rx's Medication Instructions Recorded Acetaminophen Tab [Tylenol] 650 mg PO Q4H PRN 7 Days #42 tab 11/19/19 Ibuprofen 600 mg PO Q8H PRN 7 Days #21 tab 11/19/19 predniSONE 20 mg PO DAILY 4 Days #8 tab 11/19/19 Allergies Allergy/AdvReac Type Severity Reaction Status Date / Time No Known Allergies Allergy Verified 08/15/20 21:22 Review of Systems ROS Statement: Those systems with pertinent positive or pertinent negative responses have been documented in the HPI. ROS Other: All systems not noted in ROS Statement are negative. Past Medical History Past Medical History: No Reported History Additional Past Medical History / Comment(s): anxiety History of Any Multi-Drug Resistant Organisms: None Reported Past Surgical History: Section, Orthopedic Surgery Past Anesthesia/Blood Transfusion Reactions: No Reported Reaction Additional Past Anesthesia/Blood Transfusion Reaction / Comment(s): no hx blood transfusion Past Psychological History: Anxiety Smoking Status: Vaper Past Alcohol Use History: Occasional Past Drug Use History: Marijuana - Past Family History Mother Family Medical History: No Reported History Father Family Medical History: No Reported History General Exam - General Exam Comments Initial Comments: Patient does have mild bug bite to right calf surrounding swelling and erythema Limitations: no limitations General appearance: alert, in no apparent distress Head exam: Present: atraumatic, normocephalic, normal inspection Eye exam: Present: normal appearance, PERRL, EOMI. Absent: scleral icterus, conjunctival injection, periorbital swelling ENT exam: Present: normal exam, mucous membranes moist Neck exam: Present: normal inspection. Absent: tenderness, meningismus, lymphadenopathy Respiratory exam: Present: normal lung sounds bilaterally. Absent: respiratory distress, wheezes, rales, rhonchi, stridor Cardiovascular Exam: Present: regular rate, normal rhythm, normal heart sounds. Absent: systolic murmur, diastolic murmur, rubs, gallop, clicks GI/Abdominal exam: Present: soft, normal bowel sounds. Absent: distended, tenderness, guarding, rebound, rigid Extremities exam: Present: normal inspection, full ROM, normal capillary refill. Absent: tenderness, pedal edema, joint swelling, calf tenderness Back exam: Present: normal inspection Neurological exam: Present: alert, oriented X3, CN II-XII intact Psychiatric exam: Present: normal affect, normal mood Skin exam: Present: warm, dry, intact, normal color. Absent: rash Course Vital Signs 08/15/20 21:19 Temperature 98.2 F Pulse Rate 95 Respiratory 20 Rate Blood Pressure 115/65 O2 Sat by Pulse 99 Oximetry - Reevaluation(s) Reevaluation #1: 08/15/20 22:58 Medical record is reviewed Reevaluation #2: 08/15/20 22:58 Patient is informed of results and questions answered Medical Decision Making - Medical Decision Making 25 female DF for evaluation, patient replacement antibiotics for infected bug bite. No abscesses noted to be drainable. Patient can be discharged home - Radiology Data Radiology results: report reviewed (Ultrasound bug bite does not show drainable abscess), image reviewed Disposition Clinical Impression: Open bite, right lower leg, initial encounter, Cellulitis of right leg Disposition: HOME SELF-CARE Condition: Good Instructions (If sedation given, give patient instructions): Insect Bite or Sting (ED), Cellulitis (ED) Is patient prescribed a controlled substance at d/c from ED?: No Referrals: None,Stated [Primary Care Provider] - 1-2 days
[2020-08-15] MEDS ORDERED: CEPHALEXIN 500 MG CAP PO STA (22:00)
[2020-08-15] MEDS ORDERED: SULFAMETH-TMP DS STARTER PACK 2 TAB BTL PO STA (22:00)
[2020-08-15] MEDS ORDERED: SULFAMETHOX-TMP 800-160MG 1 EACH TAB PO STA (22:00)
[2020-08-15] MEDS ORDERED: MUPIROCIN 2% OINT 22 GM TUBE TOPICAL STA (22:00)
[2020-08-15] MEDS ORDERED: CEPHALEXIN 500MG STARTER PACK 4 CAP BTL PO STA (22:00)
--- NOTE | 2020-08-15 22:29 | US ---
EXAMINATION TYPE: US extremity nonvasc mass RT DATE OF EXAM: 08/15/2020 COMPARISON: NONE CLINICAL HISTORY: dvt. EC patient with red raised area with central ulcer/scab located medial upper r ight calf and noted x 2 days. Patient stated had Tick in abdomen yesterday which she removed. US findings of medial upper right calf at skin redness: at central ulcer an irregular hypoechoic are a is seen and size measuring 3 x 3 x 6 mm. No drainable fluid collections. No significant adjacent ed den or hyperemia. Medial Saphenous Vein is patent. IMPRESSION: At the medial upper calf in region of ulceration, there is a 3 x 3 x 6 mm hypoechoic reg ion which may represent puncture wound or small focal edema. No drainable abscess.
== END 2020-08-15 23:15 | disposition home or self-care (01) ==
LOC: EC 21:12
DX: S81.851A Open bite, right lower leg, initial encounter (principal); L03.115 Cellulitis of right lower limb; W57.XXXA Bitten or stung by nonvenomous insect and other nonvenomous arthropods, initial encounter
CPT/HCPCS: 99283

== ENCOUNTER 2020-09-26 14:33 | Emergency (ER) | payer OTHER ==
[2020-09-26 15:32] VITALS: RESP 20
[2020-09-26] MEDS ORDERED: SODIUM CHLORIDE 0.9% 1,000 ML IV STA (15:53)
[2020-09-26] MEDS ORDERED: KETOROLAC 15 MG/ML 1 ML VIAL IVP STA (15:53)
[2020-09-26] MEDS ORDERED: ONDANSETRON 4 MG/2 ML VIAL IVP STA (15:53)
[2020-09-26 16:10] LABS: Basophils % (A) 0 %; Eosinophils # (A) 0.1 k/uL (0-0.7); Eosinophils % (A) 2 %; HCT 37.3 % (34.0-46.0); HGB 12.7 gm/dL (11.4-16.0); Lymphocytes # (A) 1.9 k/uL (1.0-4.8); Lymphocytes % (A) 28 %; MCH 30.6 pg (25.0-35.0); MCHC 34.1 g/dL (31.0-37.0); MCV 89.6 fL (80.0-100.0); Mean Platelet Volume 6.5; Monocytes # (A) 0.4 k/uL (0-1.0); Monocytes % (A) 6 %; Neutrophils # (A) 4.2 k/uL (1.3-7.7); Neutrophils % (A) 63 %; Platelet Count 347 k/uL (150-450); RBC 4.16 m/uL (3.80-5.40); RDW 12.7 % (11.5-15.5); WBC 6.6 k/uL (3.8-10.6)
[2020-09-26 16:11] LABS: Appearance,Urine Clear (Clear); Bilirubin,Urine Negative (Negative); Blood,Urine Negative (Negative); Color,Urine Yellow; Glucose,Urine (UA) Negative (Negative); Ketones,Urine Negative (Negative); Leukocyte Esterase,Urine Negative (Negative); Nitrite,Urine Negative (Negative); PH, Urine 6.5 (5.0-8.0); Protein,Urine Negative (Negative); Specific Gravity,Urine 1.019 (1.001-1.035); Urobilinogen,Urine <2.0 mg/dL (<2.0)
[2020-09-26 16:18] LABS: ALT 23 U/L (4-34); AST 25 U/L (14-36); African American GFR (CKD) >90 (>60 ml/min/1.73 sqM); Albumin 4.2 g/dL (3.5-5.0); Alkaline Phosphatase 67 U/L (38-126); Anion Gap 6 mmol/L; Blood Urea Nitrogen 8 mg/dL (7-17); Calcium 9.4 mg/dL (8.4-10.2); Carbon Dioxide 29 mmol/L (22-30); Chloride 104 mmol/L (98-107); Glucose 86 mg/dL (74-99); Non-African American GFR(CKD) >90 (>60 ml/min/1.73 sqM); Potassium 3.9 mmol/L (3.5-5.1); Sodium 139 mmol/L (137-145); Total Bilirubin 0.3 mg/dL (0.2-1.3); Total Protein 7.1 g/dL (6.3-8.2)
[2020-09-26] MEDS ORDERED: ONDANSETRON 4 MG ODT STARTER PACK 2 TAB BTL PO STA (16:46)
--- NOTE | 2020-09-26 16:46 | ED ---
Abdominal Pain HPI - General Chief Complaint: Abdominal Pain Stated Complaint: UTI, back & side pain Time Seen by Provider: 09/26/20 15:35 Source: patient Mode of arrival: ambulatory Limitations: no limitations - History of Present Illness Initial Comments: Patient is a 25-year-old female presenting to the emergency department with concerns of a possible UTI. Patient states she went to urgent care last week, was diagnosed with a UTI, and completed a 7 day course of Bactrim. Patient states that ended on Tuesday. She continues to feel nauseous, fatigued. She is still having a little bit of lower abdominal discomfort and is afraid that the UTI is still there. She is also complaining of a little bit of lower back discomfort. She denies any fevers or chills, no vomiting or diarrhea. She denies being . She denies any vaginal discharge, no concerns for STDs. She has no further complaints of this time. - Related Data Previous Rx's Medication Instructions Recorded Acetaminophen Tab [Tylenol] 650 mg PO Q4H PRN 7 Days #42 tab 11/19/19 Ibuprofen 600 mg PO Q8H PRN 7 Days #21 tab 11/19/19 predniSONE 20 mg PO DAILY 4 Days #8 tab 11/19/19 Cephalexin [Keflex] 500 mg PO Q8HR 7 Days #21 cap 08/15/20 Sulfamethox-Tmp 800-160Mg [Bactrim 2 tab PO BID #28 tab 08/15/20 DS 800-160 mg] Allergies Allergy/AdvReac Type Severity Reaction Status Date / Time No Known Allergies Allergy Verified 09/26/20 15:32 Review of Systems ROS Statement: Those systems with pertinent positive or pertinent negative responses have been documented in the HPI. ROS Other: All systems not noted in ROS Statement are negative. Past Medical History Past Medical History: No Reported History Additional Past Medical History / Comment(s): anxiety History of Any Multi-Drug Resistant Organisms: None Reported Past Surgical History: Section, Orthopedic Surgery Past Anesthesia/Blood Transfusion Reactions: No Reported Reaction Additional Past Anesthesia/Blood Transfusion Reaction / Comment(s): no hx blood transfusion Past Psychological History: Anxiety Smoking Status: Vaper Past Alcohol Use History: Occasional Past Drug Use History: Marijuana - Past Family History Mother Family Medical History: No Reported History Father Family Medical History: No Reported History General Exam - General Exam Comments Initial Comments: GENERAL: Patient is well-developed and well-nourished. Patient is nontoxic and in no acute distress. HEAD: Atraumatic, normocephalic. EYES: Pupils equal round and reactive to light, extraocular movements intact, sclera anicteric, conjunctiva are normal. Eyelids were unremarkable. ENT: TMs normal, nares patent, oropharynx clear without exudates. Moist mucous membranes. NECK: Normal range of motion, supple without lymphadenopathy or JVD. LUNGS: Unlabored respirations. Breath sounds clear to auscultation bilaterally and equal. No wheezes rales or rhonchi. HEART: Regular rate and rhythm without murmurs, rubs or gallops. ABDOMEN: Soft, mild suprapubic discomfort on palpation, no other areas of pain, normoactive bowel sounds. No guarding, no rebound. No masses appreciated. : Deferred MUSCULOSKELETAL: Normal extremities with adequate strength and normal range of motion, no pitting or edema. No clubbing or cyanosis. NEUROLOGICAL: Patient is alert and oriented x 3. Motor and sensory are also intact. Cranial nerves II through XII grossly intact. Symmetrical smile. Normal speech, normal gait. PSYCH: Normal mood, normal affect. SKIN: Warm, Dry, normal turgor, no rashes or lesions noted. Limitations: no limitations Course Vital Signs 09/26/20 15:28 Temperature 97.8 F Pulse Rate 82 Respiratory 20 Rate Blood Pressure 110/64 O2 Sat by Pulse 97 Oximetry Medical Decision Making - Medical Decision Making Patient is a 25-year-old female presenting for concerns of a UTI. She is having some continued nausea, fatigue, lower back discomfort. Her vitals are stable, afebrile. Her labs are unremarkable, normal white count. Urine is also unremarkable. I will also send this for culture. I discussed these findings with the patient. Patient received a liter of fluids, Toradol and Zofran. She does report improvement in her symptoms. I discussed the patient's symptoms could be related to the antibiotic that she was on some mild dehydration. I recommended following up with her PCP. She is in agreement with this plan of care and she is stable for discharge. Return parameters were discussed with her and she verbalized understanding. Case discussed with Dr. Landaverde. - Lab Data Result diagrams: 09/26/20 16:01 09/26/20 16:01 Lab Results 09/26/20 09/26/20 09/26/20 Range/Units 16:01 16:01 16:01 WBC 6.6 (3.8-10.6) k/uL RBC 4.16 (3.80-5.40) m/uL Hgb 12.7 (11.4-16.0) gm/dL Hct 37.3 (34.0-46.0) % MCV 89.6 (80.0-100.0) fL MCH 30.6 (25.0-35.0) pg MCHC 34.1 (31.0-37.0) g/dL RDW 12.7 (11.5-15.5) % Plt Count 347 (150-450) k/uL MPV 6.5 Neutrophils % 63 % Lymphocytes % 28 % Monocytes % 6 % Eosinophils % 2 % Basophils % 0 % Neutrophils # 4.2 (1.3-7.7) k/uL Lymphocytes # 1.9 (1.0-4.8) k/uL Monocytes # 0.4 (0-1.0) k/uL Eosinophils # 0.1 (0-0.7) k/uL Basophils # 0.0 (0-0.2) k/uL Sodium (137-145) mmol/L Potassium (3.5-5.1) mmol/L Chloride (98-107) mmol/L Carbon Dioxide (22-30) mmol/L Anion Gap mmol/L BUN (7-17) mg/dL Creatinine (0.52-1.04) mg/dL Est GFR (CKD-EPI)AfAm (>60 ml/min/1.73 sqM) Est GFR (CKD-EPI)NonAf (>60 ml/min/1.73 sqM) Glucose (74-99) mg/dL Calcium (8.4-10.2) mg/dL Total Bilirubin (0.2-1.3) mg/dL AST (14-36) U/L ALT (4-34) U/L Alkaline Phosphatase (38-126) U/L Total Protein (6.3-8.2) g/dL Albumin (3.5-5.0) g/dL Urine Color Yellow Urine Appearance Clear (Clear) Urine pH 6.5 (5.0-8.0) Ur Specific Snook 1.019 (1.001-1.035) Urine Protein Negative (Negative) Urine Glucose (UA) Negative (Negative) Urine Ketones Negative (Negative) Urine Blood Negative (Negative) Urine Nitrite Negative (Negative) Urine Bilirubin Negative (Negative) Urine Urobilinogen <2.0 (<2.0) mg/dL Ur Leukocyte Esterase Negative (Negative) Urine HCG, Qual Not Detected (Not Detectd) 09/26/20 Range/Units 16:01 WBC (3.8-10.6) k/uL RBC (3.80-5.40) m/uL Hgb (11.4-16.0) gm/dL Hct (34.0-46.0) % MCV (80.0-100.0) fL MCH (25.0-35.0) pg MCHC (31.0-37.0) g/dL RDW (11.5-15.5) % Plt Count (150-450) k/uL MPV Neutrophils % % Lymphocytes % % Monocytes % % Eosinophils % % Basophils % % Neutrophils # (1.3-7.7) k/uL Lymphocytes # (1.0-4.8) k/uL Monocytes # (0-1.0) k/uL Eosinophils # (0-0.7) k/uL Basophils # (0-0.2) k/uL Sodium 139 (137-145) mmol/L Potassium 3.9 (3.5-5.1) mmol/L Chloride 104 (98-107) mmol/L Carbon Dioxide 29 (22-30) mmol/L Anion Gap 6 mmol/L BUN 8 (7-17) mg/dL Creatinine 0.72 (0.52-1.04) mg/dL Est GFR (CKD-EPI)AfAm >90 (>60 ml/min/1.73 sqM) Est GFR (CKD-EPI)NonAf >90 (>60 ml/min/1.73 sqM) Glucose 86 (74-99) mg/dL Calcium 9.4 (8.4-10.2) mg/dL Total Bilirubin 0.3 (0.2-1.3) mg/dL AST 25 (14-36) U/L ALT 23 (4-34) U/L Alkaline Phosphatase 67 (38-126) U/L Total Protein 7.1 (6.3-8.2) g/dL Albumin 4.2 (3.5-5.0) g/dL Urine Color Urine Appearance (Clear) Urine pH (5.0-8.0) Ur Specific Snook (1.001-1.035) Urine Protein (Negative) Urine Glucose (UA) (Negative) Urine Ketones (Negative) Urine Blood (Negative) Urine Nitrite (Negative) Urine Bilirubin (Negative) Urine Urobilinogen (<2.0) mg/dL Ur Leukocyte Esterase (Negative) Urine HCG, Qual (Not Detectd) Disposition Clinical Impression: Abdominal pain, Fatigue Disposition: HOME SELF-CARE Condition: Stable Instructions (If sedation given, give patient instructions): Dehydration (ED) Additional Instructions: Please return to the Emergency Department if symptoms worsen or any other concerns. Recommended increasing your fluid intake. May take Zofran for any additional nausea. Please follow up with her primary care physician. Is patient prescribed a controlled substance at d/c from ED?: No Referrals: Jc Macedo DO [Primary Care Provider] - 1-2 days Time of Disposition: 16:46
[2020-09-26 17:27] VITALS: BP 106/64; PULSE 71; TEMP 98.6
== END 2020-09-26 17:26 | disposition home or self-care (01) ==
LOC: EC 14:33
DX: R10.30 Lower abdominal pain, unspecified (principal); R53.83 Other fatigue; F12.90 Cannabis use, unspecified, uncomplicated
CPT/HCPCS: 36415; 80053; 85025; 81003; 81025; 99284; 96374; 96375; 96361; J2405; J1885; S0119

== ENCOUNTER 2021-02-27 22:48 | Emergency (ER) | payer OTHER ==
[2021-02-28 00:32] LABS: Appearance,Urine Clear (Clear); Bacteria,Urine Occasional /hpf; Bilirubin,Urine Negative (Negative); Blood,Urine Negative (Negative); Color,Urine Light Yellow; Glucose,Urine (UA) Negative (Negative); Ketones,Urine Negative (Negative); Leukocyte Esterase,Urine Large (Negative); Mucus,Urine Rare /hpf; Nitrite,Urine Negative (Negative); Protein,Urine Negative (Negative); RBC,Urine 1 /hpf (0-5); Specific Gravity,Urine 1.018 (1.001-1.035); Squamous Epithelial Cell,Urine 3 /hpf (0-4); Urobilinogen,Urine <2.0 mg/dL (<2.0); WBC,Urine 49 /hpf (0-5)
[2021-02-28 01:28] LABS: Basophils % (A) 0 %; Eosinophils # (A) 0.2 k/uL (0-0.7); Eosinophils % (A) 2 %; HCT 39.2 % (34.0-46.0); HGB 12.7 gm/dL (11.4-16.0); Lymphocytes # (A) 2.4 k/uL (1.0-4.8); Lymphocytes % (A) 26 %; MCH 29.8 pg (25.0-35.0); MCHC 32.4 g/dL (31.0-37.0); MCV 91.8 fL (80.0-100.0); Mean Platelet Volume 6.6; Monocytes # (A) 0.4 k/uL (0-1.0); Monocytes % (A) 4 %; Neutrophils % (A) 65 %; Platelet Count 378 k/uL (150-450); RBC 4.27 m/uL (3.80-5.40); RDW 12.8 % (11.5-15.5); WBC 9.2 k/uL (3.8-10.6)
[2021-02-28 01:37] LABS: ALT 47 U/L (4-34); AST 28 U/L (14-36); African American GFR (CKD) >90 (>60 ml/min/1.73 sqM); Albumin 4.1 g/dL (3.5-5.0); Alkaline Phosphatase 69 U/L (38-126); Anion Gap 9 mmol/L; Blood Urea Nitrogen 11 mg/dL (7-17); Calcium 9.4 mg/dL (8.4-10.2); Carbon Dioxide 22 mmol/L (22-30); Chloride 104 mmol/L (98-107); Glucose 85 mg/dL (74-99); Non-African American GFR(CKD) >90 (>60 ml/min/1.73 sqM); Potassium 4.4 mmol/L (3.5-5.1); Sodium 135 mmol/L (137-145); Total Bilirubin 0.2 mg/dL (0.2-1.3); Total Protein 7.5 g/dL (6.3-8.2)
--- NOTE | 2021-02-28 01:52 | ED ---
Abdominal Pain HPI - General Chief Complaint: Abdominal Pain Stated Complaint: Abd Pain Time Seen by Provider: 02/27/21 23:13 Source: patient Mode of arrival: ambulatory - History of Present Illness Initial Comments: 26 year-old female patient presents to the emergency department for evaluation of lower abdominal pain and back pain. She also reports burning with urination. States that she has had pain for the last week. States the pain is bilateral, worse on the left. Reports occasional stabbing pain that wakes her from sleep. States now it is mild. She denies abnormal vaginal bleeding or discharge. States there is possibility of . LMP was 01/21/21. She is . Patient denies any recent rash, fever, chills, cough, shortness of breath, chest pain, nausea, vomiting, diarrhea, constipation, numbness, tingling, dizziness, weakness, headache, visual changes, or any other complaints. - Related Data Previous Rx's Medication Instructions Recorded Acetaminophen Tab [Tylenol] 650 mg PO Q4H PRN 7 Days #42 tab 11/19/19 Ibuprofen 600 mg PO Q8H PRN 7 Days #21 tab 11/19/19 predniSONE 20 mg PO DAILY 4 Days #8 tab 11/19/19 Cephalexin [Keflex] 500 mg PO Q8HR 7 Days #21 cap 08/15/20 Sulfamethox-Tmp 800-160Mg [Bactrim 2 tab PO BID #28 tab 08/15/20 DS 800-160 mg] Cephalexin [Keflex] 500 mg PO BID #14 cap 02/28/21 Allergies Allergy/AdvReac Type Severity Reaction Status Date / Time No Known Allergies Allergy Verified 02/27/21 23:00 Review of Systems ROS Statement: Those systems with pertinent positive or pertinent negative responses have been documented in the HPI. ROS Other: All systems not noted in ROS Statement are negative. Past Medical History Past Medical History: No Reported History Additional Past Medical History / Comment(s): anxiety History of Any Multi-Drug Resistant Organisms: None Reported Past Surgical History: Section, Orthopedic Surgery Past Anesthesia/Blood Transfusion Reactions: No Reported Reaction Additional Past Anesthesia/Blood Transfusion Reaction / Comment(s): no hx blood transfusion Past Psychological History: Anxiety Smoking Status: Vaper Past Alcohol Use History: None Reported, Occasional Past Drug Use History: Marijuana - Past Family History Mother Family Medical History: No Reported History Father Family Medical History: No Reported History General Exam General appearance: alert, in no apparent distress, other (This is a well- developed, well-nourished adult female patient in no acute distress. Vital signs upon presentation temperature 99.1F, pulse 71, respirations 19, blood pressure 103/61, pulse ox 100% on room air.) Eye exam: Present: normal appearance, PERRL, EOMI. Absent: scleral icterus, conjunctival injection, periorbital swelling ENT exam: Present: normal exam, normal oropharynx, mucous membranes moist Respiratory exam: Present: normal lung sounds bilaterally. Absent: respiratory distress, wheezes, rales, rhonchi, stridor Cardiovascular Exam: Present: regular rate, normal rhythm, normal heart sounds. Absent: systolic murmur, diastolic murmur, rubs, gallop, clicks GI/Abdominal exam: Present: soft, normal bowel sounds. Absent: distended, tenderness, guarding, rebound, rigid Back exam: Present: normal inspection. Absent: CVA tenderness (R), CVA tenderness (L) Neurological exam: Present: alert, oriented X3, CN II-XII intact Psychiatric exam: Present: normal affect, normal mood Skin exam: Present: warm, dry, intact, normal color. Absent: rash Course Vital Signs 02/27/21 23:00 Temperature 99.1 F Pulse Rate 71 Respiratory 19 Rate Blood Pressure 103/61 O2 Sat by Pulse 100 Oximetry Medical Decision Making - Medical Decision Making 26-year-old female patient presenting to the emergency department today for evaluation of intermittent lower abdominal pain, burning with urination, back pain that started approximately a week ago. Physical examination did reveal a soft nontender abdomen. No CVA tenderness. She is afebrile normal vital signs. Urinalysis was obtained and did show 49 white blood cells and some bacteria consistent with UTI. She did test positive for . Given her pain we did draw labs, hCG is around 6000. Ultrasound was obtained and showed evidence for gestational sac no ectopic . They are recommending repeat ultrasound in 2 weeks to confirm normal development as there is no evidence for previous or yolk sac on the ultrasound at this time. She is not having any vaginal bleeding. I did discuss these findings and results with her. Discussed this could be too early . She decided to follow-up with her [facility] for recheck as soon as possible. She does see Dr. Lezama. Return parameters were discussed in detail. She verbalizes understanding and agrees with this plan. Case discussed with my attending Dr. Meeks. - Lab Data Result diagrams: 02/28/21 01:12 02/28/21 01:12 Lab Results 02/28/21 02/28/21 02/28/21 Range/Units 00:04 00:04 01:12 WBC 9.2 (3.8-10.6) k/uL RBC 4.27 (3.80-5.40) m/uL Hgb 12.7 (11.4-16.0) gm/dL Hct 39.2 (34.0-46.0) % MCV 91.8 (80.0-100.0) fL MCH 29.8 (25.0-35.0) pg MCHC 32.4 (31.0-37.0) g/dL RDW 12.8 (11.5-15.5) % Plt Count 378 (150-450) k/uL MPV 6.6 Neutrophils % 65 % Lymphocytes % 26 % Monocytes % 4 % Eosinophils % 2 % Basophils % 0 % Neutrophils # 6.0 (1.3-7.7) k/uL Lymphocytes # 2.4 (1.0-4.8) k/uL Monocytes # 0.4 (0-1.0) k/uL Eosinophils # 0.2 (0-0.7) k/uL Basophils # 0.0 (0-0.2) k/uL Sodium (137-145) mmol/L Potassium (3.5-5.1) mmol/L Chloride (98-107) mmol/L Carbon Dioxide (22-30) mmol/L Anion Gap mmol/L BUN (7-17) mg/dL Creatinine (0.52-1.04) mg/dL Est GFR (CKD-EPI)AfAm (>60 ml/min/1.73 sqM) Est GFR (CKD-EPI)NonAf (>60 ml/min/1.73 sqM) Glucose (74-99) mg/dL Calcium (8.4-10.2) mg/dL Total Bilirubin (0.2-1.3) mg/dL AST (14-36) U/L ALT (4-34) U/L Alkaline Phosphatase (38-126) U/L Total Protein (6.3-8.2) g/dL Albumin (3.5-5.0) g/dL HCG, Quant mIU/mL Urine Color Light Yellow Urine Appearance Clear (Clear) Urine pH 6.0 (5.0-8.0) Ur Specific Vern[place] 1.018 (1.001-1.035) Urine Protein Negative (Negative) Urine Glucose (UA) Negative (Negative) Urine Ketones Negative (Negative) Urine Blood Negative (Negative) Urine Nitrite Negative (Negative) Urine Bilirubin Negative (Negative) Urine Urobilinogen <2.0 (<2.0) mg/dL Ur Leukocyte Esterase Large H (Negative) Urine RBC 1 (0-5) /hpf Urine WBC 49 H (0-5) /hpf Ur Squamous Epith Cells 3 (0-4) /hpf Urine Bacteria Occasional H (None) /hpf Urine Mucus Rare H (None) /hpf Urine HCG, Qual Detected (Not Detectd) 02/28/21 Range/Units 01:12 WBC (3.8-10.6) k/uL RBC (3.80-5.40) m/uL Hgb (11.4-16.0) gm/dL Hct (34.0-46.0) % MCV (80.0-100.0) fL MCH (25.0-35.0) pg MCHC (31.0-37.0) g/dL RDW (11.5-15.5) % Plt Count (150-450) k/uL MPV Neutrophils % % Lymphocytes % % Monocytes % % Eosinophils % % Basophils % % Neutrophils # (1.3-7.7) k/uL Lymphocytes # (1.0-4.8) k/uL Monocytes # (0-1.0) k/uL Eosinophils # (0-0.7) k/uL Basophils # (0-0.2) k/uL Sodium 135 L (137-145) mmol/L Potassium 4.4 (3.5-5.1) mmol/L Chloride 104 (98-107) mmol/L Carbon Dioxide 22 (22-30) mmol/L Anion Gap 9 mmol/L BUN 11 (7-17) mg/dL Creatinine 0.70 (0.52-1.04) mg/dL Est GFR (CKD-EPI)AfAm >90 (>60 ml/min/1.73 sqM) Est GFR (CKD-EPI)NonAf >90 (>60 ml/min/1.73 sqM) Glucose 85 (74-99) mg/dL Calcium 9.4 (8.4-10.2) mg/dL Total Bilirubin 0.2 (0.2-1.3) mg/dL AST 28 (14-36) U/L ALT 47 H (4-34) U/L Alkaline Phosphatase 69 (38-126) U/L Total Protein 7.5 (6.3-8.2) g/dL Albumin 4.1 (3.5-5.0) g/dL HCG, Quant 6493.0 mIU/mL Urine Color Urine Appearance (Clear) Urine pH (5.0-8.0) Ur Specific [place] (1.001-1.035) Urine Protein (Negative) Urine Glucose (UA) (Negative) Urine Ketones (Negative) Urine Blood (Negative) Urine Nitrite (Negative) Urine Bilirubin (Negative) Urine Urobilinogen (<2.0) mg/dL Ur Leukocyte Esterase (Negative) Urine RBC (0-5) /hpf Urine WBC (0-5) /hpf Ur Squamous Epith Cells (0-4) /hpf Urine Bacteria (None) /hpf Urine Mucus (None) /hpf Urine HCG, Qual (Not Detectd) - Radiology Data Radiology results: report reviewed, image reviewed Transabdominal ultrasound was obtained. Report was reviewed in its entirety. Impression by Dr. Rashid shows small intrauterine gestational sac. Follow-up exam recommended in 14 days to confirm a living fetus. No sign of ectopic . Disposition Clinical Impression: UTI (urinary tract infection), Abdominal pain during Disposition: HOME SELF-CARE Condition: Good Instructions (If sedation given, give patient instructions): Abdominal Pain in (ED), Urinary Tract Infection in (ED) Additional Instructions: Follow-up with [facility] for recheck as soon as possible, repeat ultrasound in 2 weeks. Return to the emergency department for any new, worsening, or concerning symptoms. Prescriptions: Cephalexin [Keflex] 500 mg PO BID #14 cap Is patient prescribed a controlled substance at d/c from ED?: No Referrals: Bharat Nieto MD [Primary Care Provider] - 1-2 days Javi Hatfield DO [Doctor of Osteopathic Medicine] - 1-2 days Time of Disposition: 02:28
[2021-02-28] MEDS ORDERED: CEPHALEXIN 500MG STARTER PACK 4 CAP BTL PO STA (01:57)
--- NOTE | 2021-02-28 02:25 | US ---
EXAMINATION TYPE: Transabdominal DATE OF EXAM: 02/28/2021 1:26 AM COMPARISON: NONE CLINICAL HISTORY: Abd pain; early . Just found out she was . No spotting or crampin g. EXAM PERFORMED: Transabdominal (TA) EXAM MEASUREMENTS: GESTATIONAL AGE / DATING Physician Established: Not yet established Dates by LMP: (5 weeks/3 days) EDC: 10/28/2021 Dates by First Scan: No previous this is first scan Dates by Current Scan for: Unable to date by unique arteaga's study MATERNAL ANATOMY Uterus: 9.4 x 6.9 x 4.9 cm Right Ovary: 3.6 x 2.0 x 1.8 cm Left Ovary: 3.8 x 2.4 x 1.6 cm Post CDS / Adnexa: trace/small amount of fluid seen in cul de sac Presence of free fluid: no Presence of subchorionic bleed: no GESTATION / SURVEY CRL: Not visualized MSD: 1.0 cm, Too small for dates IUP: GS only seen in endometrium Date of LMP: 01/21/2021, Beta HcG (if available): Not available at this time GS visualized within endometrial cavity. No YS or CRL seen. IMPRESSION: Small intrauterine gestational sac. Follow-up exam recommended in 14 days to confirm a living fetus. No sign of ectopic .
[2021-02-28 02:51] VITALS: RESP 18
[2021-02-28 02:52] VITALS: BP 116/60; PULSE 77; TEMP 98.6
== END 2021-02-28 02:51 | disposition home or self-care (01) ==
LOC: EC 22:48
DX: O23.41 Unspecified infection of urinary tract in pregnancy, first trimester (principal); O26.891 Other specified pregnancy related conditions, first trimester; O99.331 Smoking (tobacco) complicating pregnancy, first trimester; R10.9 Unspecified abdominal pain; Z3A.01 Less than 8 weeks gestation of pregnancy; F12.90 Cannabis use, unspecified, uncomplicated; F17.290 Nicotine dependence, other tobacco product, uncomplicated; Z72.89 Other problems related to lifestyle; F41.9 Anxiety disorder, unspecified
CPT/HCPCS: 36415; 76801; 80053; 81001; 81025; 84702; 85025; 87086; 99284

== ENCOUNTER → 2021-03-04 | Outpatient (CLI) | payer OTHER | END | disposition home or self-care (01) | LOC: LABWHC1 15:16 | PROVIDERS: ATTEND Obstetrics & Gynecology | DX: O20.0 Threatened abortion (principal); Z3A.00 Weeks of gestation of pregnancy not specified | CPT/HCPCS: 36415; 84702 ==

== ENCOUNTER → 2021-03-27 | Outpatient (CLI) | payer OTHER ==
[2021-03-28 00:22] LABS: HCT 36.1 % (37.2-46.3); HGB 11.2 g/dL (12.0-15.0); MCH 29.2 pg (27.0-32.0); MCV 94.3 fL (80.0-97.0); Mean Platelet Volume 9.7 fL (9.5-12.2); Platelet Count 318 X 10*3/uL (140-440); RBC 3.83 X 10*6/uL (4.10-5.20); RDW 13.2 % (11.5-14.5)
[2021-03-28 02:57] LABS: Non-African American GFR(CKD) 135.5 (60.0-200.0)
[2021-03-28 03:06] LABS: Hepatitis B Surface Antigen Nonreactive (Nonreactive)
== END | disposition home or self-care (01) ==
LOC: LABWHC1 14:28
PROVIDERS: ATTEND Obstetrics & Gynecology
DX: Z34.81 Encounter for supervision of other normal pregnancy, first trimester (principal); Z3A.00 Weeks of gestation of pregnancy not specified
CPT/HCPCS: 36415; 82565; 82947; 85027; 86762; 86780; 86850; 86900; 86901; 87340; 87390

== ENCOUNTER → 2021-05-20 | Outpatient (CLI) | payer OTHER ==
[2021-05-21 03:39] LABS: ALT 29 U/L (8-44); AST 33 U/L (13-35)
== END | disposition home or self-care (01) ==
LOC: LABWHC1 14:43
PROVIDERS: ATTEND Obstetrics & Gynecology
DX: K81.9 Cholecystitis, unspecified (principal)
CPT/HCPCS: 36415; 82239; 84450; 84460

== ENCOUNTER 2021-07-26 12:37 | Outpatient (CLI) | payer OTHER ==
[2021-07-26] MEDS ORDERED: LACTATED RINGERS 1,000 ML IV SCH (13:15)
[2021-07-26] MEDS ORDERED: ONDANSETRON 4 MG/2 ML VIAL IVP STA (13:31)
[2021-07-26 13:34] VITALS: BP 110/56; PULSE 88; RESP 16; TEMP 97.7
--- NOTE | 2021-07-27 07:23 | P.MSEPDOC ---
Presenting Problems - Arrival Data Date of Arrival on Unit: 07/26/21 Time of Arrival on Unit: 12:37 Mode of Transport: Ambulatory - Complaint OB-Reason for Admission/Chief Complaint: Acute Nausea/Vomiting Comment: cramping with nausea and vomiting Medical History - Information : 3 Para: 2 Term: 2 : 0 Abortions: Spontaneous or Elective: 0 Number of Living Children: 2 - Gestational Age Gestational Age by SVETLANA (wks/days): 26 Weeks and 4 Days - History Complications: Smoker Comment: vaping Review of Systems - Review of Systems Constitutional: No problems Breast: No problems ENT: No problems Cardiovascular: No problems Respiratory: No problems Gastrointestinal: No problems Genitourinary: No problems Musculoskeletal: No problems Neurological: No problems Skin: No problems Comment: vomiting Vital Signs - Temperature Temperature: 97.7 F Temperature Source: Oral - Pulse Right Pulse Rate: 88 Pulse Assessment Method: Automatic Cuff - Respirations Respiratory Rate: 16 Oxygen Delivery Method: Room Air O2 Sat by Pulse Oximetry: 97 - Blood Pressure Right Arm Blood Pressure: 110/56 Blood Pressure Mean: 74 Blood Pressure Source: Automatic Cuff Medical Screen Scoring - Assessment - Baby A Baseline FHR: 145 Heart Rate - NICHD Category: Category I (Normal) Physician Notification - Physician Notified Physician Notified Date: 07/26/21 Physician Notified Time: 13:02 Physician: Elfego Dumont Order Received: Yes - Notification Comment Comment: RN reported to Dr. Dumont maternal assessment, [place] and unable to keep anything down, abdomen soft to palpation, pt states that her cramping happens when she feels that she is about to throw up, FHR is 140-155bpm. RN to administer 1L IVF, and pt may have zofran if the 1L fluid does not make her feel better. If pt feels better after 1L IVF, she may DC home with her regular routine follow up. Maternal Triage Index - Maternal Triage Index Presenting for scheduled procedure w/no complaint: No - Stat/Priority 1 Stat Priority 1: No - Urgent/Priority 2 Urgent Priority 2: No - Prompt/Priority 3 Prompt Priority 3: No - Non-Urgent/Priority 4 Non-Urgent Priority 4: Yes Criteria Met for Priority 4: acute nausea and vomiting with abdominal cramps Disposition - Disposition OB Disposition: Triage Discharge Date: 07/26/21 Discharge Time: 14:00 I agree with the RN Medical Screening Exam: Yes Case reviewed; plan agreed upon as documented in EMR&OBIX.: Yes Diagnosis: VOMITING OF , UNSPECIFIED
== END 2021-07-26 14:00 | disposition home or self-care (01) ==
LOC: FBPOP 12:37
PROVIDERS: ATTEND Obstetrics & Gynecology
DX: O21.2 Late vomiting of pregnancy (principal); O99.332 Smoking (tobacco) complicating pregnancy, second trimester; F17.290 Nicotine dependence, other tobacco product, uncomplicated; Z3A.26 26 weeks gestation of pregnancy
CPT/HCPCS: 96361; 96374; G0463; J2405; 99214

== ENCOUNTER 2021-09-11 10:12 | Emergency (ER) | payer OTHER ==
[2021-09-11 10:27] VITALS: BP 96/61; PULSE 80; RESP 18; TEMP 98
--- NOTE | 2021-09-11 11:43 | ED ---
ENT HPI - General Chief complaint: ENT Stated complaint: Sore throat/cough Time Seen by Provider: 09/11/21 10:53 Source: patient, RN notes reviewed Mode of arrival: ambulatory Limitations: no limitations - History of Present Illness Initial comments: 26-year-old female presents emergency Department with chief complaint of cough congestion sore throat year pain nausea. Patient states that symptoms started 2-3 days ago. No reported fever mild chills body aches. Patient denies any shortness breath she does have a cough minimally productive. Patient states she started 3 weeks no sick contacts. No abdominal complaints no complaints. - Related Data Home Medications Medication Instructions Recorded Confirmed D-Methorphan/PE/Acetaminophen 2 tab PO DIRECTED 09/13/21 09/13/21 [Tylenol Cold Multi-Symp Caplet] Allergies Allergy/AdvReac Type Severity Reaction Status Date / Time No Known Allergies Allergy Verified 09/11/21 11:14 Review of Systems ROS Statement: Those systems with pertinent positive or pertinent negative responses have been documented in the HPI. ROS Other: All systems not noted in ROS Statement are negative. Past Medical History Past Medical History: No Reported History Additional Past Medical History / Comment(s): anxiety History of Any Multi-Drug Resistant Organisms: None Reported Past Surgical History: Section, Orthopedic Surgery Past Anesthesia/Blood Transfusion Reactions: No Reported Reaction Additional Past Anesthesia/Blood Transfusion Reaction / Comment(s): no hx blood transfusion Past Psychological History: Anxiety Smoking Status: Vaper Past Alcohol Use History: None Reported Past Drug Use History: None Reported - Past Family History Mother Family Medical History: No Reported History Father Family Medical History: No Reported History General Exam Limitations: no limitations General appearance: alert, in no apparent distress Head exam: Present: atraumatic, normocephalic, normal inspection Eye exam: Present: normal appearance, PERRL, EOMI. Absent: scleral icterus, conjunctival injection, periorbital swelling ENT exam: Present: mucous membranes moist. Absent: normal exam, normal oropharynx (Postnasal drainage), TM's normal bilaterally (Mild fluid no erythema) Neck exam: Present: normal inspection, full ROM. Absent: tenderness, meningismus, lymphadenopathy Respiratory exam: Present: normal lung sounds bilaterally. Absent: respiratory distress, wheezes, rales, rhonchi, stridor Cardiovascular Exam: Present: regular rate, normal rhythm, normal heart sounds. Absent: systolic murmur, diastolic murmur, rubs, gallop, clicks Course Vital Signs 09/11/21 10:24 Temperature 98 F Pulse Rate 80 Respiratory 18 Rate Blood Pressure 96/61 O2 Sat by Pulse 96 Oximetry Medical Decision Making - Medical Decision Making Patient left AMA. - Lab Data Lab Results 09/11/21 Range/Units 10:30 Influenza Type A RNA Not Detected (Not Detectd) Influenza Type B (PCR) Not Detected (Not Detectd) Disposition Clinical Impression: URI (upper respiratory infection) Disposition: Left Against Medical Advice Referrals: None,Stated [Primary Care Provider] - 1-2 days
== END 2021-09-11 11:54 | disposition left against medical advice (07) ==
LOC: EC 10:12
DX: J06.9 Acute upper respiratory infection, unspecified (principal); F17.209 Nicotine dependence, unspecified, with unspecified nicotine-induced disorders
CPT/HCPCS: 87502

== ENCOUNTER 2021-10-22 06:00 | Inpatient (IN) | payer OTHER ==
[2021-10-22] MEDS ORDERED: CITRIC ACID-SODIUM CITRATE 15 ML CUP PO ONE (06:20)
[2021-10-22] MEDS: LACTATED RINGERS 1,000 ML IV SCH ×2 (06:49→16:41)
[2021-10-22 07:36] LABS: Basophils % (A) 0 %; Eosinophils # (A) 0.1 k/uL (0-0.7); Eosinophils % (A) 1 %; HCT 27.9 % (34.0-46.0); Hypochromasia Slight; Lymphocytes # (A) 1.1 k/uL (1.0-4.8); Lymphocytes % (A) 20 %; MCH 28.7 pg (25.0-35.0); MCHC 32.2 g/dL (31.0-37.0); Mean Platelet Volume 7.6; Monocytes # (A) 0.3 k/uL (0-1.0); Monocytes % (A) 6 %; Neutrophils # (A) 4.1 k/uL (1.3-7.7); Neutrophils % (A) 71 %; Platelet Count 252 k/uL (150-450); RBC 3.13 m/uL (3.80-5.40); RDW 14.2 % (11.5-15.5); WBC 5.8 k/uL (3.8-10.6)
[2021-10-22] MEDS ORDERED: PROPOFOL 10 MG/ML 20 ML VIAL IV ONE (07:54)
[2021-10-22] MEDS ORDERED: KETOROLAC 15 MG/ML 1 ML VIAL ONE (07:54)
[2021-10-22] MEDS ORDERED: ePHEDrine 50 MG/ML 1 ML VIAL ONE (07:54)
[2021-10-22] MEDS ORDERED: OXYTOCIN 30 UNITS/500 ML NS BAG IV ONE (07:54)
[2021-10-22] MEDS ORDERED: fentaNYL (PF) 50 MCG/ML 2 ML AMP ONE (07:54)
[2021-10-22] MEDS ORDERED: SUCCINYLCHOLINE CHLORIDE 100 MG/5 ML SYR IV ONE (07:54)
[2021-10-22] MEDS ORDERED: ONDANSETRON 4 MG/2 ML VIAL ONE (07:54)
[2021-10-22] MEDS ORDERED: DEXAMETHASONE SOD PHOSPHATE 10 MG/ML 1 ML VIAL ONE (07:54)
[2021-10-22] MEDS ORDERED: NALBUPHINE 10 MG/ML (1 ML AMP) ONE (07:54)
[2021-10-22] MEDS ORDERED: GLYCOPYRROLATE 0.2 MG/ML 2 ML VIAL ONE (07:54)
[2021-10-22] MEDS ORDERED: MORPHINE SULFATE (PF) 0.3 MG/0.3 ML SYR ONE (07:54)
[2021-10-22] MEDS ORDERED: NALOXONE 0.4 MG/ML 1 ML VIAL IV PRN (08:41)
[2021-10-22] MEDS ORDERED: ONDANSETRON 4 MG/2 ML VIAL IVP PRN (08:41)
[2021-10-22] MEDS ORDERED: diphenhydrAMINE 50 MG/ML 1 ML VIAL IVP PRN ×3 (08:41→08:47)
[2021-10-22] MEDS ORDERED: MORPHINE SULFATE 2 MG/ML SYRINGE IVP PRN (08:41)
[2021-10-22] MEDS ORDERED: NALBUPHINE 10 MG/ML (1 ML AMP) IV PRN (08:41)
--- NOTE | 2021-10-22 08:43 | P.HPOB ---
History of Present Illness H&P Date: 10/22/21 Chief Complaint: Repeat low transverse 26-year-old presents at 39 weeks for repeat low transverse . Review of Systems All systems: negative Constitutional: Denies chills, Denies fever Eyes: denies blurred vision, denies pain Ears, nose, mouth and throat: Denies headache, Denies sore throat Cardiovascular: Denies chest pain, Denies shortness of breath Respiratory: Denies cough Gastrointestinal: Denies abdominal pain, Denies diarrhea, Denies nausea, Denies vomiting Genitourinary: Denies dysuria, Denies hematuria Musculoskeletal: Denies myalgias Integumentary: Denies pruritus, Denies rash Neurological: Denies numbness, Denies weakness Psychiatric: Denies anxiety, Denies depression Endocrine: Denies fatigue, Denies weight change Past Medical History Past Medical History: No Reported History Additional Past Medical History / Comment(s): anxiety History of Any Multi-Drug Resistant Organisms: None Reported Past Surgical History: Section, Orthopedic Surgery Past Anesthesia/Blood Transfusion Reactions: No Reported Reaction Additional Past Anesthesia/Blood Transfusion Reaction / Comment(s): no hx blood transfusion Past Psychological History: Anxiety Smoking Status: Vaper Past Alcohol Use History: None Reported Additional Past Alcohol Use History / Comment(s): started smoking 18,<1/2ppd Past Drug Use History: None Reported - Past Family History Mother Family Medical History: No Reported History Father Family Medical History: No Reported History Medications and Allergies Home Medications Medication Instructions Recorded Confirmed Type D-Methorphan/PE/Acetaminophen 2 tab PO DIRECTED PRN 09/13/21 10/22/21 History [Tylenol Cold Multi-Symp Caplet] Allergies Allergy/AdvReac Type Severity Reaction Status Date / Time No Known Allergies Allergy Verified 10/22/21 06:19 Exam Osteopathic Statement: *. No significant issues noted on an osteopathic structural exam other than those noted in the History and Physical/Consult. Vital Signs Temp Pulse Resp BP Pulse Ox 10/22/21 06:42 95.7 F L 83 16 115/57 97 Intake and Output 10/21/21 10/22/21 10/22/21 22:59 06:59 14:59 Other: Weight 110.223 kg Heart: Regular rate and rhythm Lungs: Clear to auscultation bilaterally Abdomen: Soft, nontender Extremities: Negative Homans sign Results Result Diagrams: 10/22/21 06:50 Abnormal Lab Results - Last 24 Hours (Table) 10/22/21 10/22/21 Range/Units 06:50 07:30 RBC 3.13 L (3.80-5.40) m/uL Hgb 9.0 L (11.4-16.0) gm/dL Hct 27.9 L (34.0-46.0) % Coronavirus (PCR) Detected A (Not Detectd) Assessment and Plan (1) 39 weeks gestation of Current Visit: Yes Status: Acute Code(s): Z3A.39 - 39 WEEKS GESTATION OF SNOMED Code(s): 76007634 (2) Previous section Current Visit: Yes Status: Acute Code(s): Z98.891 - HISTORY OF UTERINE SCAR FROM PREVIOUS SURGERY SNOMED Code(s): 651036142 Plan: 1. Repeat low transverse
[2021-10-22] MEDS ORDERED: METOCLOPRAMIDE 5 MG/ML 2 ML VIAL IVP PRN (08:47)
[2021-10-22] MEDS ORDERED: HYDROmorphone 1 MG/ML 1 ML SYRINGE IVP PRN (08:47)
[2021-10-22] MEDS ORDERED: ZOLPIDEM 5 MG TAB PO PRN (08:47)
[2021-10-22] MEDS ORDERED: diphenhydrAMINE 50 MG CAP PO PRN (08:47)
[2021-10-22] MEDS ORDERED: diphenhydrAMINE 25 MG CAP PO PRN (08:47)
[2021-10-22] MEDS ORDERED: LANOLIN CREAM 5 GM TUBE TOPICAL PRN (08:47)
[2021-10-22] MEDS ORDERED: SIMETHICONE 80 MG CHEWABLE PO PRN (08:47)
--- NOTE | 2021-10-22 08:47 | P.OP ---
Date of Procedure: 10/22/21 Preoperative Diagnosis: 1. at 39 weeks 2. Previous section Postoperative Diagnosis: 1. at 39 weeks 2. Previous section 3. Coronavirus positive Procedure(s) Performed: Repeat low transverse Anesthesia: GETA, randy Surgeon: Nadia Cervantes Manufacturing Shift Supervisor #1: Dania Fraire Estimated Blood Loss (ml): 430 IV fluids (ml): 800 Urine output (ml): 200 Pathology: other (Percent to) Condition: stable Disposition: floor Operative Findings: Viable male, Apgars 9, 9, weight 8 lbs. 5 oz. Normal uterus, tubes, ovaries. Covid positive Description of Procedure: Patient was taken to the operating room where spinal anesthesia was found be inadequate. Informed consent was obtained and then patient was put under general anesthesia without complication. At this time the coated test done earlier came back positive. She was prepped and draped in normal sterile fashion in dorsal supine position with a leftward tilt. Pfannenstiel skin incision was made the scalpel and carried through to the underlying layer of fascia with the scalpel. Fascia was incised in midline and carried bilaterally with the Goldman scissors. The superior aspect of the fascial incision was grasped with [place] clamps elevated and the underlying rectus muscles dissected off with the Goldman's. Attention was then turned to inferior aspect of same incision which in a similar fashion was grasped tented up and the underlying rectus muscles dissected off with the Goldman's. The rectus muscles were the midline and the peritoneum was identified tented up and entered sharply with the scalpel. The incision was extended superiorly and inferiorly with good visualization of the bladder. The bladder blade was inserted and the vesicouterine peritoneum was incised the Metzenbaums then carried bilaterally and bladder flap created digitally. A low transverse incision was then made on the uterus with the scalpel. This was carried bilaterally and digital manner. Infant's head delivered atraumatically, nose and mouth bulb suctioned, cord clamped and cut, handed off to waiting nurses. Apgars 9, 9, weight 8 lbs. 5 oz. Placenta delivered manually, intact with three-vessel cord. The uterus is exteriorized and cleared of all clots and debris. The uterine incision was closed with 0 Vicryl in a running locked fashion. Second layer of the same sutures used in imbricating fashion to obtain excellent hemostasis. Bladder flap was then reapproximated using 2-0 Vicryl in a running fashion. Both ovaries and tubes appeared normal. The uterus was placed back into the abdomen. The peritoneum was reapproximated using 2-0 Vicryl in a running fashion. The muscles were reapproximated using 2-0 Vicryl in interrupted fashion. The fascia was reapproximated using 0 Vicryl in a running fashion. The subcutaneous tissues closed with 3-0 Vicryl running fashion. The skin was closed nahed. Patient tolerated the procedure well, sponge and instrument counts were correct times 2 and she was taken to the recovery room in stable condition.
[2021-10-22] MEDS ORDERED: OXYTOCIN 30 UNITS/500 ML NS 30 UNIT in SALINE 1 500ML.BAG IV SCH (09:00)
[2021-10-22] MEDS ORDERED: HYDROmorphone PCA 10 MG/50 ML BAG IV PRN (11:36)
[2021-10-22] MEDS: ACETAMINOPHEN TAB 500 MG TAB PO SCH ×2 (13:38→19:38)
[2021-10-22] MEDS: KETOROLAC 15 MG/ML 1 ML VIAL IVP PRN ×2 (16:39→22:52)
[2021-10-22] MEDS: IBUPROFEN 600 MG TAB PO SCH ×2 (16:41→21:15)
[2021-10-22] MEDS: SENNOSIDES-DOCUSATE SODIUM 1 EACH TAB PO SCH (19:38)
[2021-10-23] MEDS: ACETAMINOPHEN TAB 500 MG TAB PO SCH ×4 (02:52→20:44)
[2021-10-23] MEDS: IBUPROFEN 600 MG TAB PO SCH ×3 (05:30→18:22)
[2021-10-23] MEDS: KETOROLAC 15 MG/ML 1 ML VIAL IVP PRN (05:40)
--- NOTE | 2021-10-23 07:15 | P.PN ---
Progress Note - Text 10/23 640am 26-year-old female status post with spinal Duramorph. Patient seen and evaluated for postop pain control, she has a VAS of 5 with complaints of pruritus. Pruritus should subside in 24 hours, no other anesthesia related issue
[2021-10-23] MEDS: SENNOSIDES-DOCUSATE SODIUM 1 EACH TAB PO SCH ×2 (08:24→20:46)
--- NOTE | 2021-10-23 08:58 | P.PNOBGPC ---
Subjective - Subjective Principal diagnosis: Status post repeat section postoperative day 1 Interval history: Patient is doing okay. She is ambulating. She is breast-feeding. Lochia is decreasing. Her pain is overall fairly well controlled. She is passing flatus but no bowel movement yet. Patient reports: Reports appetite normal, Reports voiding normally, Reports pain well controlled, Reports ambulating normally : doing well, nursing well Objective - Vital Signs Latest vital signs: Vital Signs Temp Pulse Resp BP Pulse Ox 10/23/21 07:59 98.6 F 68 18 109/58 96 10/23/21 03:49 97.4 F L 74 14 104/52 97 10/23/21 00:00 62 19 10/22/21 23:03 97.2 F L 62 19 96/52 10/22/21 21:00 16 96 10/22/21 20:00 97.5 F L 60 16 102/58 96 10/22/21 19:00 16 10/22/21 17:00 16 95 10/22/21 16:00 96.8 F L 65 16 100/54 95 10/22/21 15:00 16 95 10/22/21 13:07 98 10/22/21 13:00 16 10/22/21 12:00 96.8 F L 78 16 110/55 98 10/22/21 11:41 16 96 10/22/21 11:00 96.5 F L 72 16 110/56 96 10/22/21 10:30 71 16 100/56 97 10/22/21 10:00 77 16 106/55 97 10/22/21 09:45 96 16 96/53 97 10/22/21 09:41 16 100 10/22/21 09:30 69 16 120/59 98 10/22/21 09:15 83 16 117/61 100 10/22/21 09:00 96.6 F L 81 16 119/59 100 Intake and Output 10/22/21 10/23/21 10/23/21 22:59 06:59 14:59 Intake Total 1680 720 Output Total 2000 400 Balance -320 320 Intake: IV 1200 Oral 480 720 Output: Urine 2000 400 Other: # Voids 2 - Exam Abdomen: Present: normal appearance, soft (Positive bowel sounds 4). Absent: distention, tenderness Incision: Present: normal, dry, intact. Absent: erythematous Uterus: Present: normal, firm. Absent: tenderness Assessment and Plan Assessment: Status post repeat low transverse section postoperative day #1 Positive COVID-19 Plan: Continue postoperative care. Anticipate possible discharge home tomorrow.
[2021-10-23 09:14] LABS: Basophils % (A) 0 %; Eosinophils % (A) 0 %; HCT 25.5 % (34.0-46.0); HGB 8.4 gm/dL (11.4-16.0); Hypochromasia Slight; Lymphocytes # (A) 1.6 k/uL (1.0-4.8); Lymphocytes % (A) 22 %; MCH 29.5 pg (25.0-35.0); MCHC 33.2 g/dL (31.0-37.0); Mean Platelet Volume 8.1; Monocytes # (A) 0.3 k/uL (0-1.0); Monocytes % (A) 4 %; Neutrophils % (A) 70 %; Platelet Count 240 k/uL (150-450); RBC 2.86 m/uL (3.80-5.40); RDW 14.6 % (11.5-15.5); WBC 7.1 k/uL (3.8-10.6)
[2021-10-23] MEDS: LACTATED RINGERS 1,000 ML IV SCH (11:04)
--- NOTE | 2021-10-23 16:07 | XR ---
EXAMINATION TYPE: XR chest 2V DATE OF EXAM: 10/23/2021 COMPARISON: 07/18/2020 HISTORY: 26-year-old female positive COVID, decreased pulse ox. TECHNIQUE: Frontal and lateral views FINDINGS: Heart normal size allowing for AP technique. Aorta and pulmonary vasculature are within normal limits . Minimal peribronchial cuffing is noted. Some strandy atelectasis in the lower lungs. No renae conso lidation or pleural effusion. IMPRESSION: Minimal peribronchial cuffing could reflect bronchitis or asthma. No focal infiltrate.
--- NOTE | 2021-10-23 16:30 | P.CONS ---
History of Present Illness - Reason for Consult Consult date: 10/23/21 - History of Present Illness Consulting physician: Obstetric Reason for consult: COVID 19 infection History of present illness: 26-year-old female without significant past medical history except for obesity. Had yesterday. She was tested positive for COVID 19 infection the patient reported upper respiratory tract like symptoms for the past 5 days. She denies any chest pain or shortness of breath. Patient satting 97% room air. Chest x-ray negative for infiltrate. Hospitalist service consulted for medical management. CRP and D dimers and CMP ordered pending result. Patient denies nausea vomiting or abdominal pain. RN stated that the patient pulse ox dropped to 93% when she was sleeping. Currently SpO2 is 97% on room air patient is awake alert oriented 3. The father and the baby present at the same room. Review of system:All 14 review of systems evaluated and all negative except for above. Physical examination: General: non toxic, no distress, appears at stated age. Obese Derm: warm, dry Head: atraumatic, normocephalic, symmetric Eyes: EOMI, no lid lag, anicteric sclera Mouth: no lip lesion, mucus membranes moist Cardiovascular: S1S2 reg, no murmur, positive posterior tibial pulse bilateral, Lungs: CTA bilateral, no rhonchi, no rales , no accessory muscle use Abdominal: soft, nontender to palpation, no guarding, no appreciable organomegaly Ext: no gross muscle atrophy, no edema, no contractures Neuro: CN II-XI grossly intact, no focal neuro deficits Psych: Alert, oriented, appropriate affect Assessment and plan #Status post -Management per obstetric and gynecology #Positive COVID 19 infection -Symptoms or 5 days -The patient stated that her symptoms improved after -pulse ox is 97% room air -Chest x-ray negative for pneumonia -Check CRP and D dimers -Patient denies any chest pain or shortness of breath -Continue observation -If d-dimer is elevated then CTA of the chest is recommended #Super morbid obesity BMI 41 #DVT prophylaxis with Lovenox Past Medical History Past Medical History: No Reported History Additional Past Medical History / Comment(s): anxiety History of Any Multi-Drug Resistant Organisms: None Reported Past Surgical History: Section, Orthopedic Surgery Past Anesthesia/Blood Transfusion Reactions: No Reported Reaction Additional Past Anesthesia/Blood Transfusion Reaction / Comm: no hx blood transfusion Past Psychological History: Anxiety Smoking Status: Vaper Past Alcohol Use History: None Reported Additional Past Alcohol Use History / Comment(s): started smoking 18,<1/2ppd Past Drug Use History: None Reported - Past Family History Mother Family Medical History: No Reported History Father Family Medical History: No Reported History Medications and Allergies Home Medications Medication Instructions Recorded Confirmed Type D-Methorphan/PE/Acetaminophen 2 tab PO DIRECTED PRN 09/13/21 10/22/21 History [Tylenol Cold Multi-Symp Caplet] Allergies Allergy/AdvReac Type Severity Reaction Status Date / Time No Known Allergies Allergy Verified 10/22/21 06:19 Physical Exam Vitals: Vital Signs Temp Pulse Resp BP Pulse Ox 10/23/21 15:36 98 10/23/21 15:05 98.7 F 74 20 102/51 93 L 10/23/21 07:59 98.6 F 68 18 109/58 96 10/23/21 03:49 97.4 F L 74 14 104/52 97 10/23/21 00:00 62 19 10/22/21 23:03 97.2 F L 62 19 96/52 10/22/21 21:00 16 96 10/22/21 20:00 97.5 F L 60 16 102/58 96 10/22/21 19:00 16 10/22/21 17:00 16 95 Intake and Output 10/23/21 10/23/21 10/23/21 06:59 14:59 22:59 Intake Total 720 Output Total 400 Balance 320 Intake: Oral 720 Output: Urine 400 Other: # Voids 2 2 Results CBC & Chem 7: 10/23/21 08:56 Labs: Abnormal Lab Results - Last 24 Hours (Table) 10/23/21 Range/Units 08:56 RBC 2.86 L (3.80-5.40) m/uL Hgb 8.4 L (11.4-16.0) gm/dL Hct 25.5 L (34.0-46.0) %
[2021-10-23 17:16] LABS: ALT 15 U/L (4-34); AST 26 U/L (14-36); African American GFR (CKD) >90 (>60 ml/min/1.73 sqM); Albumin 2.5 g/dL (3.5-5.0); Alkaline Phosphatase 155 U/L (38-126); Anion Gap 3 mmol/L; Blood Urea Nitrogen 6 mg/dL (7-17); C Reactive Protein 4.6 mg/dL (<1.0); Calcium 8.2 mg/dL (8.4-10.2); Carbon Dioxide 24 mmol/L (22-30); Chloride 108 mmol/L (98-107); Glucose 88 mg/dL (74-99); Non-African American GFR(CKD) >90 (>60 ml/min/1.73 sqM); Potassium 4.2 mmol/L (3.5-5.1); Sodium 135 mmol/L (137-145); Total Bilirubin 0.3 mg/dL (0.2-1.3); Total Protein 5.3 g/dL (6.3-8.2)
[2021-10-23] MEDS: ENOXAPARIN 40 MG/0.4 ML SYRINGE SQ SCH (20:36)
--- NOTE | 2021-10-23 20:46 | CT ---
EXAMINATION TYPE: CT chest angio for PE CT DLP: 1188 mGycm, Automated exposure control for dose reduction was used. DATE OF EXAM: 10/23/2021 8:05 PM COMPARISON: Chest radiograph same day. CLINICAL INDICATION:Female, 26 years old with history of elevated D dimers; elevated D dimer TECHNIQUE/CONTRAST: CTA scan of the thorax is performed with IV Contrast, patient injected with 100ml mL of Isovue 370, p ulmonary embolism protocol. MIP images are created and reviewed. FINDINGS: Pulmonary Artery: There is no evidence for a filling defect within the pulmonary vasculature to sugge st acute pulmonary embolism. The pulmonary artery is at the upper limits of normal measuring 3.4 cm. Lungs/Pleura: No evidence of focal consolidation, pleural effusion or pneumothorax. Airway: Large airways are patent. Heart: The heart is mildly enlarged for size.. Vasculature: No evidence of aortic aneurysm. Mediastinum: No gross evidence of adenopathy. Musculoskeletal: No acute osseous abnormalities. Mild multilevel disc degeneration changes throughout the spine. Soft Tissues: Unremarkable. Lower neck: No significant findings. Upper Abdomen: No significant findings. IMPRESSION: 1. No evidence of pulmonary embolism. 2. Pulmonary hypertension suggested.
[2021-10-24] MEDS: IBUPROFEN 600 MG TAB PO SCH ×3 (01:10→12:19)
[2021-10-24] MEDS: ACETAMINOPHEN TAB 500 MG TAB PO SCH ×2 (01:12→08:38)
[2021-10-24 07:19] LABS: Basophils % (A) 0 %; Eosinophils # (A) 0.1 k/uL (0-0.7); Eosinophils % (A) 1 %; HCT 26.1 % (34.0-46.0); HGB 8.5 gm/dL (11.4-16.0); Hypochromasia Slight; Lymphocytes # (A) 1.4 k/uL (1.0-4.8); Lymphocytes % (A) 13 %; MCH 28.9 pg (25.0-35.0); MCHC 32.7 g/dL (31.0-37.0); MCV 88.5 fL (80.0-100.0); Mean Platelet Volume 7.6; Monocytes # (A) 0.4 k/uL (0-1.0); Monocytes % (A) 4 %; Neutrophils # (A) 8.9 k/uL (1.3-7.7); Neutrophils % (A) 82 %; Platelet Count 276 k/uL (150-450); RBC 2.95 m/uL (3.80-5.40); RDW 14.5 % (11.5-15.5); WBC 10.9 k/uL (3.8-10.6)
--- NOTE | 2021-10-24 07:29 | XR ---
EXAMINATION TYPE: XR chest 1V portable DATE OF EXAM: 10/24/2021 6:37 AM COMPARISON: Chest radiographs from 05/01/[address] chest 10/23/2021. TECHNIQUE: XR chest 1V portable Frontal view of the chest. CLINICAL INDICATION:Female, 26 years old with history of POSITIVE COVID R/O PNA; FINDINGS: Lungs/Pleura: There is no evidence of pleural effusion, focal consolidation, or pneumothorax. Pulmonary vascularity: Unremarkable. Heart/mediastinum: Cardiomediastinal silhouette is unremarkable. Musculoskeletal: No acute osseous pathology. IMPRESSION: No focal consolidation. Unchanged exam from prior.
[2021-10-24 07:31] LABS: ALT 17 U/L (4-34); AST 27 U/L (14-36); African American GFR (CKD) >90 (>60 ml/min/1.73 sqM); Albumin 2.7 g/dL (3.5-5.0); Alkaline Phosphatase 167 U/L (38-126); Anion Gap 4 mmol/L; Blood Urea Nitrogen 6 mg/dL (7-17); Calcium 8.1 mg/dL (8.4-10.2); Carbon Dioxide 23 mmol/L (22-30); Chloride 109 mmol/L (98-107); Glucose 74 mg/dL (74-99); Non-African American GFR(CKD) >90 (>60 ml/min/1.73 sqM); Sodium 136 mmol/L (137-145); Total Bilirubin 0.2 mg/dL (0.2-1.3); Total Protein 5.6 g/dL (6.3-8.2)
[2021-10-24] MEDS: SENNOSIDES-DOCUSATE SODIUM 1 EACH TAB PO SCH (08:38)
[2021-10-24] MEDS: ENOXAPARIN 40 MG/0.4 ML SYRINGE SQ SCH (08:38)
[2021-10-24 09:12] VITALS: BP 94/50; PULSE 69; RESP 15; TEMP 97
--- NOTE | 2021-10-24 11:59 | P.DS ---
Providers Date of admission: 10/22/21 06:00 Expected date of discharge: 10/24/21 Attending physician: Nadia Cervantes Consults: 10/23/21 15:40 Consult Physician Stat Consulting Provider: Taylor Carter Consult Reason/Comments: postop C/Sday1 covid+ symp 1 week O2 sats 90 -93 rm air lungs dim wcx Do you want consulting provider notified?: Yes Primary care physician: Stated None Hospital Course: This is a 26-year-old female 3 para 2 at 39-0/7 weeks who presented for repeat scheduled section on 10/22/2021. Upon arrival she did have some congestion symptoms and therefore a COVID-19 test was performed. After her spinal anesthetic was already in, the results came back positive on her COVID-19 test. This spinal however did not work for pain control and therefore she underwent a general anesthesia for her repeat section on 10/22/2021. She delivered a viable male infant with scores of 9 at 1 minute and 9 at 5 minutes and infant weight of 8 lbs. 5 oz. Her and postoperative course initially was uncomplicated however on post operative day #1, she started having lower oxygen stats at 93%. Medicine was consulted and x-ray and CT were performed. It was negative for pulmonary embolism. She was encouraged to keep doing her incentive spirometry and her sats have become normal since that time. She denies any cough or increased congestion. Lochia is decreasing. She is passing flatus and bowel movement. Her pain has been fairly well controlled mostly with ibuprofen and Tylenol but she occasionally does require oxycodone. She is breast-feeding. Vital signs are stable. Abdomen is soft with positive bowel sounds 4. Incision is clean dry and intact with nahed in place. Extremities show negative Homans. Impression is status post repeat low transverse section postoperative day #2. Plan is to discharge home today as long this she is cleared by medicine. We'll give prescriptions for ibuprofen and a few oxycodone. She is counseled regarding opioid use and has signed a consent form. She is advised to follow up Dr. Cervantes in approximately 1 week for a postoperative check and in 6 weeks for check. She is advised to call the office if she has any further questions or concerns prior to her appointment time. Procedures: Repeat low transverse section on 10/22/2021 Patient Condition at Discharge: Stable Plan - Discharge Summary New Discharge Prescriptions: New Ibuprofen [Motrin] 600 mg PO Q6H #60 tab oxyCODONE HCL [OxyIR] 5 mg PO Q4HR PRN #10 tab PRN Reason: Pain Scale 4 - 6 No Action D-Methorphan/PE/Acetaminophen [Tylenol Cold Multi-Symp Caplet] 2 tab PO DIRECTED PRN PRN Reason: Cold Symptoms Discharge Medication List D-Methorphan/PE/Acetaminophen [Tylenol Cold Multi-Symp Caplet] 2 tab PO DIRECTED PRN 09/13/21 [History] Ibuprofen [Motrin] 600 mg PO Q6H #60 tab 10/24/21 [Rx] oxyCODONE HCL [OxyIR] 5 mg PO Q4HR PRN #10 tab 10/24/21 [Rx] Follow up Appointment(s)/Referral(s): Nadia Cervantes DO [Doctor of Osteopathic Medicine] - 12/08/21 3:45 pm (Post Op Appointment 11-02-2021 at 1:30p.m.) Activity/Diet/Wound Care/Special Instructions: Instructions 1. Do not begin any exercise program for 3 weeks. 2. Do not resume sexual relations for 3 weeks or longer if uncomfortable. 3. You may take tub baths or showers at any time. 4. You may use tampons if desired after 3 weeks. 5. Keep the area of episiotomy (stitches) clean and dry. 6. If you are not nursing, wear a good fitting, supportive bra during the day and limit fluid intake for at least 1 week to prevent breast engorgement. 7. Call the office, [phone], within the next week to make appointment for your 6 week checkup if it has not already been made. 8. Report any of the following occurrences to the doctor promptly: a. Heavy, excessive bleeding b. Chills, fever c. Burning or frequency of urination d. Pain or redness and breasts if nursing e. Increasing pain or swelling in episiotomy (stitches). In addition to the above instructions, the following additional should be followed: 1. No heavy lifting or straining (exercising) until after 6 week checkup. 2. Keep abdominal incision clean and dry: You may wear a dressing if more comfortable. 3. Make office appointment for 10 days after going home or as instructed by her doctor. Discharge Disposition: HOME SELF-CARE
--- NOTE | 2021-10-24 14:14 | P.PN ---
Subjective Progress Note Date: 10/24/21 History of present illness: 26-year-old female without significant past medical history except for obesity. Had yesterday. She was tested positive for COVID 19 infection the patient reported upper respiratory tract like symptoms for the past 5 days. She denies any chest pain or shortness of breath. Patient satting 97% room air. Chest x-ray negative for infiltrate. Hospitalist service consulted for medical management. CRP and D dimers and CMP ordered pending result. Patient denies nausea vomiting or abdominal pain. RN stated that the patient pulse ox dropped to 93% when she was sleeping. Currently SpO2 is 97% on room air patient is awake alert oriented 3. The father and the baby present at the same room. Interval history: Patient was examined at the bedside. She denies any chest pain or shortness of breath. Computed tomography scan of the chest was negative for PE. Patient still satting 96% room air. She denies any chest pain Physical examination: General: non toxic, no distress, appears at stated age. Obese Derm: warm, dry Head: atraumatic, normocephalic, symmetric Eyes: EOMI, no lid lag, anicteric sclera Mouth: no lip lesion, mucus membranes moist Cardiovascular: S1S2 reg, no murmur, positive posterior tibial pulse bilateral, Lungs: CTA bilateral, no rhonchi, no rales , no accessory muscle use Abdominal: soft, nontender to palpation, no guarding, no appreciable organomegaly Ext: no gross muscle atrophy, no edema, no contractures Neuro: CN II-XI grossly intact, no focal neuro deficits Psych: Alert, oriented, appropriate affect Assessment and plan #Status post -Management per obstetric and gynecology #Positive COVID 19 infection -Symptoms over 5 days -The patient stated that her symptoms improved after -pulse ox is 97% room air -Chest x-ray negative for pneumonia -Check CRP and D dimers -Patient denies any chest pain or shortness of breath -D-dimer was elevated so CT of the chest ordered. CT of the chest was negative for PE. -CT of the chest was suggestive pulmonary hypertension. Patient was instructed to follow-up with primary care physician for outpatient cardiology or pulmonolog y evaluation #Super morbid obesity BMI 41 #DVT prophylaxis with Lovenox Objective - Vital Signs Vital signs: Vital Signs Temp 97.0 F L 10/24/21 08:00 Pulse 69 10/24/21 08:00 Resp 15 10/24/21 08:00 BP 94/50 10/24/21 08:00 Pulse Ox 96 10/24/21 08:00 FiO2 Intake & Output 10/23/21 10/24/21 10/24/21 18:59 06:59 18:59 Other: # Voids 2 1 1 - Labs CBC & Chem 7: 10/24/21 06:46 10/24/21 06:46 Labs: Abnormal Lab Results - Last 24 Hours (Table) 10/23/21 10/23/21 10/24/21 Range/Units 16:26 16:26 06:46 WBC 10.9 H (3.8-10.6) k/uL RBC 2.95 L (3.80-5.40) m/uL Hgb 8.5 L (11.4-16.0) gm/dL Hct 26.1 L (34.0-46.0) % Neutrophils # 8.9 H (1.3-7.7) k/uL D-Dimer 1.18 H (<0.60) mg/L FEU Sodium 135 L (137-145) mmol/L Chloride 108 H (98-107) mmol/L BUN 6 L (7-17) mg/dL Calcium 8.2 L (8.4-10.2) mg/dL Alkaline Phosphatase 155 H (38-126) U/L C-Reactive Protein 4.6 H (<1.0) mg/dL Total Protein 5.3 L (6.3-8.2) g/dL Albumin 2.5 L (3.5-5.0) g/dL 10/24/21 Range/Units 06:46 WBC (3.8-10.6) k/uL RBC (3.80-5.40) m/uL Hgb (11.4-16.0) gm/dL Hct (34.0-46.0) % Neutrophils # (1.3-7.7) k/uL D-Dimer (<0.60) mg/L FEU Sodium 136 L (137-145) mmol/L Chloride 109 H (98-107) mmol/L BUN 6 L (7-17) mg/dL Calcium 8.1 L (8.4-10.2) mg/dL Alkaline Phosphatase 167 H (38-126) U/L C-Reactive Protein (<1.0) mg/dL Total Protein 5.6 L (6.3-8.2) g/dL Albumin 2.7 L (3.5-5.0) g/dL
== END 2021-10-24 13:30 | disposition home or self-care (01) | DRG 786 ==
LOC: 4FBP 06:00
PROVIDERS: ADMIT Obstetrics & Gynecology; ATTEND Obstetrics & Gynecology
PROC: 10D00Z1 Extraction of Products of Conception, Low, Open Approach (ICD-10-PCS; principal; 2021-10-22 08:18)
DX: O34.211 Maternal care for low transverse scar from previous cesarean delivery (principal); U07.1 COVID-19; O98.52 Other viral diseases complicating childbirth; O99.214 Obesity complicating childbirth; O99.344 Other mental disorders complicating childbirth; E66.01 Morbid (severe) obesity due to excess calories; F41.9 Anxiety disorder, unspecified; Z37.0 Single live birth; Z3A.39 39 weeks gestation of pregnancy; Z87.891 Personal history of nicotine dependence; Z71.89 Other specified counseling
CPT/HCPCS: 71045; 71046; 71275; 80053; 85025; 85379; 86140; 86850; 86900; 86901; 87635; 88307

== ENCOUNTER 2021-11-06 22:21 | Emergency (ER) | payer OTHER ==
[2021-11-06 22:35] VITALS: RESP 18
--- NOTE | 2021-11-07 00:21 | ED ---
Recheck HPI - General Chief Complaint: Skin/Abscess/Foreign Body Stated Complaint: 10/22 /Infection Time Seen by Provider: 11/07/21 00:21 Source: patient Mode of arrival: ambulatory Limitations: no limitations - Related Data Home Medications Medication Instructions Recorded Confirmed D-Methorphan/PE/Acetaminophen 2 tab PO DIRECTED PRN 09/13/21 10/22/21 [Tylenol Cold Multi-Symp Caplet] Previous Rx's Medication Instructions Recorded Ibuprofen [Motrin] 600 mg PO Q6H #60 tab 10/24/21 oxyCODONE HCL [OxyIR] 5 mg PO Q4HR PRN #10 tab 10/24/21 Allergies Allergy/AdvReac Type Severity Reaction Status Date / Time No Known Allergies Allergy Verified 11/06/21 22:35 Review of Systems ROS Statement: Those systems with pertinent positive or pertinent negative responses have been documented in the HPI. ROS Other: All systems not noted in ROS Statement are negative. Past Medical History Past Medical History: No Reported History Additional Past Medical History / Comment(s): anxiety History of Any Multi-Drug Resistant Organisms: None Reported Past Surgical History: Section, Orthopedic Surgery Past Anesthesia/Blood Transfusion Reactions: No Reported Reaction Additional Past Anesthesia/Blood Transfusion Reaction / Comment(s): no hx blood transfusion Past Psychological History: Anxiety Smoking Status: Vaper Past Alcohol Use History: None Reported Past Drug Use History: None Reported - Past Family History Mother Family Medical History: No Reported History Father Family Medical History: No Reported History General Exam Limitations: no limitations Course Vital Signs 11/06/21 11/07/21 22:33 02:04 Temperature 98.3 F Pulse Rate 82 61 Respiratory 18 18 Rate Blood Pressure 118/76 96/51 O2 Sat by Pulse 98 99 Oximetry Medical Decision Making - Lab Data Result diagrams: 11/07/21 01:46 11/07/21 01:46 Lab Results 11/07/21 11/07/21 Range/Units 01:46 01:46 WBC 6.9 (3.8-10.6) k/uL RBC 4.17 (3.80-5.40) m/uL Hgb 11.8 D (11.4-16.0) gm/dL Hct 37.1 (34.0-46.0) % MCV 89.1 (80.0-100.0) fL MCH 28.4 (25.0-35.0) pg MCHC 31.9 (31.0-37.0) g/dL RDW 14.5 (11.5-15.5) % Plt Count 493 H (150-450) k/uL MPV 7.2 Neutrophils % 56 % Lymphocytes % 34 % Monocytes % 5 % Eosinophils % 2 % Basophils % 0 % Neutrophils # 3.9 (1.3-7.7) k/uL Lymphocytes # 2.4 (1.0-4.8) k/uL Monocytes # 0.3 (0-1.0) k/uL Eosinophils # 0.1 (0-0.7) k/uL Basophils # 0.0 (0-0.2) k/uL Hypochromasia Slight Sodium 142 (137-145) mmol/L Potassium 4.4 (3.5-5.1) mmol/L Chloride 107 (98-107) mmol/L Carbon Dioxide 23 (22-30) mmol/L Anion Gap 12 mmol/L BUN 11 (7-17) mg/dL Creatinine 0.76 (0.52-1.04) mg/dL Est GFR (CKD-EPI)AfAm >90 (>60 ml/min/1.73 sqM) Est GFR (CKD-EPI)NonAf >90 (>60 ml/min/1.73 sqM) Glucose 77 (74-99) mg/dL Calcium 9.4 (8.4-10.2) mg/dL Total Bilirubin 0.4 (0.2-1.3) mg/dL AST 34 (14-36) U/L ALT 32 (4-34) U/L Alkaline Phosphatase 120 (38-126) U/L Total Protein 7.8 (6.3-8.2) g/dL Albumin 4.4 (3.5-5.0) g/dL Amylase 75 (30-110) U/L Lipase 153 (23-300) U/L Disposition Clinical Impression: Postoperative pain Disposition: HOME SELF-CARE Condition: Good Instructions (If sedation given, give patient instructions): Pain Management After Surgery (DC) Is patient prescribed a controlled substance at d/c from ED?: No Referrals: None,Stated [Primary Care Provider] - 1-2 days
[2021-11-07] MEDS ORDERED: MORPHINE SULFATE 4 MG/ML SYRINGE IV STA (01:02)
[2021-11-07] MEDS ORDERED: KETOROLAC 15 MG/ML 1 ML VIAL IVP STA (01:02)
[2021-11-07] MEDS ORDERED: SODIUM CHLORIDE 0.9% 1,000 ML IV STA ×2 (01:02)
[2021-11-07] MEDS ORDERED: AMPICILLIN-SULBACTAM 3 GM in SODIUM CHLORIDE 0.9% 100 ML IVPB STA (01:03)
[2021-11-07] MEDS ORDERED: ACETAMINOPHEN IV (For NPO) 1,000 MG in EMPTY BAG 1 BAG IVPB STA (02:26)
[2021-11-07 02:33] LABS: Basophils % (A) 0 %; Eosinophils # (A) 0.1 k/uL (0-0.7); Eosinophils % (A) 2 %; HCT 37.1 % (34.0-46.0); Hypochromasia Slight; Lymphocytes # (A) 2.4 k/uL (1.0-4.8); Lymphocytes % (A) 34 %; MCH 28.4 pg (25.0-35.0); MCHC 31.9 g/dL (31.0-37.0); MCV 89.1 fL (80.0-100.0); Mean Platelet Volume 7.2; Monocytes # (A) 0.3 k/uL (0-1.0); Monocytes % (A) 5 %; Neutrophils # (A) 3.9 k/uL (1.3-7.7); Neutrophils % (A) 56 %; Platelet Count 493 k/uL (150-450); RBC 4.17 m/uL (3.80-5.40); RDW 14.5 % (11.5-15.5); WBC 6.9 k/uL (3.8-10.6)
[2021-11-07 02:37] LABS: HGB 11.8 gm/dL (11.4-16.0)
[2021-11-07 02:40] LABS: ALT 32 U/L (4-34); AST 34 U/L (14-36); African American GFR (CKD) >90 (>60 ml/min/1.73 sqM); Albumin 4.4 g/dL (3.5-5.0); Alkaline Phosphatase 120 U/L (38-126); Amylase 75 U/L (30-110); Anion Gap 12 mmol/L; Blood Urea Nitrogen 11 mg/dL (7-17); Calcium 9.4 mg/dL (8.4-10.2); Carbon Dioxide 23 mmol/L (22-30); Chloride 107 mmol/L (98-107); Glucose 77 mg/dL (74-99); Lipase 153 U/L (23-300); Non-African American GFR(CKD) >90 (>60 ml/min/1.73 sqM); Potassium 4.4 mmol/L (3.5-5.1); Sodium 142 mmol/L (137-145); Total Bilirubin 0.4 mg/dL (0.2-1.3); Total Protein 7.8 g/dL (6.3-8.2)
--- NOTE | 2021-11-07 03:23 | CT ---
EXAMINATION TYPE: CT abdomen pelvis wo con DATE OF EXAM: 11/07/2021 COMPARISON: 06/16/2020 HISTORY: Abd pain post csection CT DLP: 967.5 mGycm Automated exposure control for dose reduction was used. Images obtained from the diaphragm to the floor the pelvis with no contrast. There is some mild subsegmental atelectasis left lung base. Heart size is normal. No pericardial effu tavares. Liver spleen and stomach pancreas appear intact. Gallbladder is intact. Mild extra not dilated. There is no adrenal mass. Kidneys of normal size and contour. No hydronephrosis. There is some minima l 3 mm calcification posterior left kidney. No retroperitoneal adenopathy. Ureters are not dilated. T he bladder distends smoothly. Uterus is enlarged consistent with recent . No pelvic mass. No free fluid in the pelvis. There is no mesenteric edema. No ascites or free air. No bowel obstruction. There is some mild fat st randing in the subcutaneous tissues over the lower anterior abdomen from recent . The lumbar vertebrae have normal alignment. Disc spaces are normal. No compression fracture. The bony pelvis is intact. Hip joints are intact. Appendix not clearly seen. No sign of thickened appendix. IMPRESSION: There is some mild postsurgical changes. No pathologic fluid collection. No complicating process. Minimal subsegmental atelectasis left lung base.
[2021-11-07] MEDS ORDERED: MUPIROCIN 2% OINT 22 GM TUBE TOPICAL STA (03:27)
[2021-11-07 03:52] VITALS: BP 111/64; PULSE 64; TEMP 96.9
== END 2021-11-07 03:55 | disposition home or self-care (01) ==
LOC: EC 22:21
DX: O90.89 Other complications of the puerperium, not elsewhere classified (principal); G89.18 Other acute postprocedural pain; O99.335 Smoking (tobacco) complicating the puerperium; F17.290 Nicotine dependence, other tobacco product, uncomplicated
CPT/HCPCS: 36415; 80053; 82150; 83690; 85025; 87040; 74176; 99284; 96365; 96367; J0295; J0131